=== PATIENT | female | born 1935 | race Caucasian/White ===

== ENCOUNTER 2018-01-07 09:21 | Emergency (ER) | payer OTHER, MEDICARE ==
[~2018-01-07 09:21] MED LIST: GOLYTELY SOLU4000 ML PO
--- NOTE | 2018-01-07 09:34 | ED GENERAL ADULT ---
History of Present Illness General Chief Complaint: Neuro Symptoms/ Deficit Stated Complaint: DIZZY/LFT ARM NUMBNESS Source: patient Exam Limitations: no limitations Vital Signs & Intake/Output Vital Signs & Intake/Output Vital Signs Date Time Temp Pulse Resp B/P B/P Pulse O2 O2 Flow FiO2 Mean Ox Delivery Rate 01/07 1311 98.0 71 18 161/75 100 Room Air 01/07 1125 98.1 72 16 169/89 98 Room Air Room Air 01/07 1002 96 Room Air 01/07 0930 97.2 67 22 167/95 95 Allergies Coded Allergies: No Known Allergies (09/22/17) Reconcile Medications Amlodipine Besylate 2.5 MG TABLET 2.5 MG PO DAILY HTN (Reported) Aspirin (Aspirin*) 81 MG TAB.CHEW 81 MG PO DAILY CARDIAC (Reported) Atorvastatin Calcium 10 MG TABLET 10 MG PO DAILY HTN (Reported) Cholecalciferol (Vitamin D3) (Vitamin D3) 1,000 UNIT CAPSULE 1 CAP PO DAILY SUPPLEMENT (Reported) Donepezil HCl 5 MG TABLET 5 MG PO DAILY MEMORY LOSS (Reported) Ferrous Sulfate 325 MG (65 MG IRON) TABLET 1 TAB PO DAILY IRON, VITAMIN ( Reported) Lorazepam 0.5 MG TABLET 0.5 MG PO DAILY NEEDED ANXIETY (Reported) Multivitamin (Multivitamins) 1 EACH CAPSULE 1 CAP PO DAILY SUPPLEMENT ( Reported) Ondansetron (Zofran Odt) 4 MG TAB.RAPDIS 4 MG SL AD NAUSEA (Reported) Triage Note: PER PT NOT "RIGHT" X 3 WEEKS BUT INTERMITTTANT PAIN THIS AM ABOUT 1 HR NURSING PROGRAM CHAIR PT REPORTS PAIN TO L ARM/ LEG MUCH WORSE THAN PREVIOUS SPEECH CLEAR AND ALERT BUT UNABLE TO GET ACCURATE COURSE OF EVENTS Triage Nurses Notes Reviewed? yes Onset: Abrupt Duration: day(s): Timing: recent history HPI: 01/07/18 82-year-old female presented to the emergency department for intermittent difficulty finding words. She says this is been going on for over a year. Now she presents today with a sudden onset of left upper extremity weakness. She says she also has weakness to the left lower extremity. She denies slurred speech or difficulty swallowing. She denies any significant past medical history. On physical exam she is awake alert oriented 3. I do not appreciate any facial droop, upper or lower extremity weakness on my exam. She does have difficulty and is unable to say you can't teach an old tricks. Past History Travel History Traveled to [place] past 21 day No Medical History Any Pertinent Medical History? 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 No Review of Systems Review of Systems Constitutional: Denies: fever. EENTM: Denies: visual changes. Respiratory: Denies: short of breath. Cardiovascular: Denies: chest pain. GI: Denies: abdominal pain. Genitourinary: Reports: no symptoms. Musculoskeletal: Reports: no symptoms. Skin: Reports: no symptoms. Neurological/Psychological: Reports: see HPI. Hematologic/Endocrine: Reports: no symptoms. Immunologic/Allergic: Reports: no symptoms. Physical Exam Physical Exam General Appearance: well developed/nourished, alert, awake, anxious, mild distress Head: atraumatic, normal appearance Eyes: Bilateral: normal appearance, PERRL, EOMI. Ears, Nose, Throat: normal pharynx, normal ENT inspection Neck: normal inspection, supple, full range of motion Respiratory: normal breath sounds, chest non-tender, no respiratory distress Cardiovascular: regular rate/rhythm Peripheral Pulses: 4+ radial (R), 4+ radial (L) Gastrointestinal: soft, non-tender Back: decreased range of motion Extremities: no edema Neurologic/Psych: no motor/sensory deficits, awake, alert, oriented x 3 (SHORT- TERM MEMORY DEFICIT) Skin: intact, normal color, warm/dry Core Measures ACS in differential dx? No CVA/TIA Diagnosis: No Sepsis Present: No Sepsis Focused Exam Completed? No Progress Differential Diagnoses I considered the following diagnoses in my evaluation of the patient: [CVA, TIA, organic brain syndrome] I considered the diagnosis of acute CVA. The patient has been having issues with difficulty with short-term memory and speech deficit for over a year according to the . He says there is no acute change. Plan of Care: Orders Procedure Date/time Status TROPONIN LEVEL 01/08 948 Complete COMPREHENSIVE METABOLIC PANEL 01/08 948 Complete CBC WITHOUT DIFFERENTIAL 01/08 948 Complete EKG 01/08 948 Active Laboratory Tests 01/07/18 1015: Anion Gap 11, Estimated GFR > 60, BUN/Creatinine Ratio 25.0, Glucose 90, Calcium 10.0, Total Bilirubin 0.9, AST 31, ALT 43, Alkaline Phosphatase 87, Troponin I < 0.01, Total Protein 7.0, Albumin 4.7, Globulin 2.3, Albumin/Globulin Ratio 2.0, CBC w Diff NO MAN DIFF REQ, RBC 4.81, MCV 88.1, MCH 29.8, MCHC 33.8, RDW 13.3, MPV 7.1 L, Gran % 59.8, Lymphocytes % 31.8, Monocytes % 6.6, Eosinophils % 1.4, Basophils % 0.4, Absolute Granulocytes 3.6, Absolute Lymphocytes 1.9, Absolute Monocytes 0.4, Absolute Eosinophils 0.1, Absolute Basophils 0 Initial ED EKG: pending Departure Departure Disposition: STILL A PATIENT Condition: Stable Clinical Impression Primary Impression: Weakness Secondary Impressions: Memory loss Referrals: Ileana SHERIDAN,Elizabeth Murray (PCP/Family) Departure Forms: Customer Survey General Discharge Information Comments 01/07/18 The patient was seen and evaluated by the neurologist in the Emergency Department. We are in agreement with the plan that her symptoms are likely related to her underlying neurodegenerative process. Assuming her labs and CT are unremarkable patient will be discharged. EKG NSRPATIENT: LM MULLER PRESENT AGE: 82 PATIENT ACCOUNT NO: [id number] : 37 LOCATION: [facility] ORDERING PHYSICIAN: Lorenzo Rivera DO SERVICE DATE: 01/07/18 EXAM TYPE: CAT - CT HEAD ANGIOGRAM; CT NECK ANGIOGRAM EXAMINATION: CT ANGIOGRAM NECK WITH CONTRAST CT ANGIOGRAM BRAIN WITH CONTRAST CLINICAL INFORMATION: New left-sided weakness. Rule out CVA. COMPARISON: Brain MRI 01/08/2017. TECHNIQUE: Test bolus sequences followed by intravenous administration 93 mL of Optiray 320. Helical imaging was performed in the axial plane from the thoracic inlet to the skull vertex. Delayed postcontrast imaging of the head was also performed. The data was processed at the cardiac cath technologist workstation for generation of MIP sequences. Angled MIPs and volume rendered reformatted images were also generated at an offline 3D workstation. Stenoses are assessed in accordance with NASCET criteria unless otherwise indicated. DLP: 1609 mGy-cm FINDINGS: Head CT: There is no intracranial hemorrhage, large acute infarction, or mass lesion. The ventricles are normal in size and configuration without evidence of hydrocephalus. There is left frontal sinus drainage pathway mucosal thickening. The left maxillary sinus is partly atelectatic. Is mucosal thickening in the left sphenoid. The mastoids and middle ear cavities are clear. The extracranial soft tissues are unremarkable. 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 There is no significant stenosis of the great vessel origins. The bilateral common carotid arteries appear normal. The bilateral internal carotid arteries appear normal without significant stenosis. The vertebral artery origins and cervical segments appear normal without significant stenosis. Head CTA: No intracranial aneurysm is seen. There are atheromatous changes involving the bilateral carotid siphons. The anterior cerebral artery, anterior communicating artery, and middle cerebral arteries appear normal. The intradural vertebral arteries and basilar artery appear normal. The posterior cerebral arteries appear normal. The posterior communicating arteries are not well seen. Non-vascular findings: There is biapical pleural-parenchymal thickening. There are multilevel degenerative changes in the cervical spine including anterolisthesis of C2 on C3 and C3 on C4 with retrolisthesis of C4 on C5. There is severe disc height loss at C4-C5 and C5-C6. No mass or fluid collection is identified within the neck. IMPRESSION: CT head: No intracranial hemorrhage or large acute infarction. CTA neck: No hemodynamically significant stenosis in the major arteries of the neck. CTA head: No large vessel occlusion or significant stenosis within the intracranial circulation. DICTATED BY: Keron Cheng MD DATE/TIME DICTATED:01/07/181248 BOOKMAKER'S CLERK:MATILDA DATE/TIME TRANSCRIBED:01/07/181248 CONFIDENTIAL, DO NOT COPY WITHOUT APPROPRIATE AUTHORIZATION. <Electronically signed in Other Vendor System> SIGNED BY: Keron Cheng MD 01/07/18 9207 Critical Care Note Critical Care Note Critical Care Time: 30-74 min
[2018-01-07] MEDS ORDERED: LORAZEPAM0.5 M1 PO (09:51)
[2018-01-07] MEDS ORDERED: AMLODIPINE BES2.5 M1 PO (09:51)
[2018-01-07] MEDS ORDERED: ZOFRAN ODT4 M1 SL (09:51)
[2018-01-07] MEDS ORDERED: ATORVASTATIN CA10 M1 PO (09:52)
[2018-01-07] MEDS ORDERED: DONEPEZIL HCL5 MG PO (09:53)
[2018-01-07] MEDS ORDERED: ASPIRIN81 M4 PO (09:53)
[2018-01-07] MEDS ORDERED: MULTIVITAMINS1 EAC8 PO (09:54)
[2018-01-07] MEDS ORDERED: FERROUS SULFAT325 M3 PO (09:54)
[2018-01-07] MEDS ORDERED: VITAMIN D31000 UNI1 PO (09:54)
[2018-01-07 10:24] LABS: ABSOLUTE BASOPHIL COUNT 0 /CUMM (0.0-0.2); ABSOLUTE EOSINOPHIL COUNT 0.1 /CUMM (0.0-0.7); ABSOLUTE GRANULOCYTE CT 3.6 /CUMM (1.4-6.5); ABSOLUTE LYMPH COUNT 1.9 /CUMM (1.2-3.4); ABSOLUTE MONOCYTE COUNT 0.4 /CUMM (0.10-0.60); BASOPHIL % 0.4 % (0.0-2.0); EOSINOPHIL % 1.4 % (0-5); GRANULOCYTE % 59.8 % (42.2-75.2); HEMATOCRIT 42.3 % (37-47); MEAN CORPUSCULAR HGB 29.8 PG (27.0-31.0); MEAN CORPUSCULAR HGB CONC 33.8 G/DL (33.0-37.0); MEAN CORPUSCULAR VOLUME 88.1 FL (81.0-99.0); MEAN PLATELET VOLUME 7.1 FL (7.4-10.4); PLATELET COUNT 261 /CUMM (130-400); RBC DISTRIBUTION WIDTH 13.3 % (11.5-14.5); RED BLOOD CELL CT 4.81 /CUMM (4.20-5.40)
--- NOTE | 2018-01-07 11:13 | Cons- Neurology ---
General Information and HPI Consulting Request Date of Consult: 01/07/18 Requested By: Miguel Reason for Consult: Left side numbness/weakness Source of Information: patient, family Exam Limitations: not alert/orientated, confusion, poor historian History of Present Illness: This is an 82-year-old woman who over the last year has had multiple admissions to emergency rooms for an odd complaint of left-sided arm and leg dysfunction. A she comes back for that reason. She cannot define her problem well. He says that she has pain in but this is very low on the pain scale. She claims that she may have numbness or weakness but there is no evidence for it on exam. She feels that the left arm is not right. She has had a number of admissions for this. MRI brain and cervical spine did not reveal much as far as upper more neuron pathology. However over the last year she has also developed gradual insidious forgetfulness, has been disoriented, and has become very nervous and anxious leading to presentations with heightened blood pressure. This setting she was recently started on Aricept but did not tolerate it well. Rarely she is disoriented to the date and does not know the president's name. Allergies/Medications Allergies: Coded Allergies: No Known Allergies (09/22/17) Home Med List: Amlodipine Besylate 2.5 MG TABLET 2.5 MG PO DAILY HTN (Reported) Aspirin (Aspirin*) 81 MG TAB.CHEW 81 MG PO DAILY CARDIAC (Reported) Atorvastatin Calcium 10 MG TABLET 10 MG PO DAILY HTN (Reported) Cholecalciferol (Vitamin D3) (Vitamin D3) 1,000 UNIT CAPSULE 1 CAP PO DAILY SUPPLEMENT (Reported) Donepezil HCl 5 MG TABLET 5 MG PO DAILY MEMORY LOSS (Reported) Ferrous Sulfate 325 MG (65 MG IRON) TABLET 1 TAB PO DAILY IRON, VITAMIN ( Reported) Lorazepam 0.5 MG TABLET 0.5 MG PO DAILY NEEDED ANXIETY (Reported) Multivitamin (Multivitamins) 1 EACH CAPSULE 1 CAP PO DAILY SUPPLEMENT ( Reported) Ondansetron (Zofran Odt) 4 MG TAB.RAPDIS 4 MG SL AD NAUSEA (Reported) Review of Systems Review of Systems: As per HPI otherwise negative. 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 Pleasant and cooperative. MSE: Alert and oriented to place but only partially to time. He is not no full date and cannot tell me who the president is. Poor attention and concentration. Poor short-term memory and fund of knowledge reflected through our conversation. Language is fluent with good comprehension and repetition. Has trouble naming. Cardiovascular: S1 and S2 are normal, regular rate and rhythm, and normal pedal pulses. Vision: Fundoscopic exam does not reveal any abnormalties. Visual mckeon are intact. Neurological: Extra ocular movements intact, RADHA, face is symmetric, tongue midline, uvula raises equally in the midline, V1-V3 sensation to touch is intact and equal bilaterallty, sternocleidomastoid and trapezius are strong on both sides, muscles of mastication are strong. No dysarthria noted. Motor exam reveals no abnormality of strength. Power is 5-5 throughout the distribution distally and proximally. Sensory exam did not reveal any deficits to touch, temperature, vibration and proprioception. Reflexes are symmetric bilaterally. Cerebellar exam does not reveal any dysmetria. Rapid alternating movements are intact bilaterally. Gait is steady with normal base. Normal graphesthesia and stereognosis. Mold double simultaneous stimulation. Last 48 Hours of Lab Results: Laboratory Tests 01/07 1015 Chemistry Sodium (137 - 145 mmol/L) 143 Potassium (3.5 - 5.1 mmol/L) 4.3 Chloride (98 - 107 mmol/L) 106 Carbon Dioxide (22 - 30 mmol/L) 27 Anion Gap (5 - 16) 11 BUN (7 - 17 mg/dL) 20 H Creatinine (0.5 - 1.0 mg/dL) 0.8 Estimated GFR (>60 ml/min) > 60 BUN/Creatinine Ratio (7 - 25 %) 25.0 Glucose (65 - 99 mg/dL) 90 Calcium (8.4 - 10.2 mg/dL) 10.0 Total Bilirubin (0.2 - 1.3 mg/dL) 0.9 AST (14 - 36 U/L) 31 ALT (9 - 52 U/L) 43 Alkaline Phosphatase (<127 U/L) 87 Troponin I (< 0.11 ng/ml) < 0.01 Total Protein (6.3 - 8.2 g/dL) 7.0 Albumin (3.5 - 5.0 g/dL) 4.7 Globulin (1.9 - 4.2 gm/dL) 2.3 Albumin/Globulin Ratio (1.1 - 2.2 %) 2.0 Hematology CBC w Diff NO MAN DIFF REQ WBC (4.8 - 10.8 /CUMM) 6.0 RBC (4.20 - 5.40 /CUMM) 4.81 Hgb (12.0 - 16.0 G/DL) 14.3 Hct (37 - 47 %) 42.3 MCV (81.0 - 99.0 FL) 88.1 MCH (27.0 - 31.0 PG) 29.8 MCHC (33.0 - 37.0 G/DL) 33.8 RDW (11.5 - 14.5 %) 13.3 Plt Count (130 - 400 /CUMM) 261 MPV (7.4 - 10.4 FL) 7.1 L Gran % (42.2 - 75.2 %) 59.8 Lymphocytes % (20.5 - 51.1 %) 31.8 Monocytes % (1.7 - 9.3 %) 6.6 Eosinophils % (0 - 5 %) 1.4 Basophils % (0.0 - 2.0 %) 0.4 Absolute Granulocytes (1.4 - 6.5 /CUMM) 3.6 Absolute Lymphocytes (1.2 - 3.4 /CUMM) 1.9 Absolute Monocytes (0.10 - 0.60 /CUMM) 0.4 Absolute Eosinophils (0.0 - 0.7 /CUMM) 0.1 Absolute Basophils (0.0 - 0.2 /CUMM) 0 Imaging/Other Studies: MRI brain and cervical spine>> IMPRESSION: 1. Nonspecific white matter changes in the supratentorial white matter would be atypical for intracranial demyelinating disease and are more consistent with mild to moderate chronic small vessel ischemia. 2. No imaging evidence of demyelinating disease in the cervical spine. 3. Motion degraded assessment of the cervical spine reveals moderate multilevel cervical spondylosis. There is slight anterolisthesis of C4 on C5 and slight retrolisthesis of C5 on C6. Vertebral bodies are normal in height. Degenerative endplate marrow signal and associated contour changes are visible at C5-C6 and C6-C7, levels where there is also moderate loss of normal intervertebral disc volume. The craniocervical junction is normal in appearance and the cervical spinal cord is normal in contour and signal intensity. 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 There is no evidence of any stroke, TIA, or myelopathy in the cervical spine. Recommendations: He did be discharged home. Anxiety and long-term effects of medications should be afforded as an outpatient. Recommend trying Namenda. Consult Acknowledgment - Thank you for your consult request.
--- NOTE | 2018-01-07 13:07 | CT SCAN REPORT ---
EXAMINATION: CT ANGIOGRAM NECK WITH CONTRAST CT ANGIOGRAM BRAIN WITH CONTRAST CLINICAL INFORMATION: New left-sided weakness. Rule out CVA. COMPARISON: Brain MRI 01/08/2017. TECHNIQUE: Test bolus sequences followed by intravenous administration 93 mL of Optiray 320. Helical imaging was performed in the axial plane from the thoracic inlet to the skull vertex. Delayed postcontrast imaging of the head was also performed. The data was processed at the special procedure technologist workstation for generation of MIP sequences. Angled MIPs and volume rendered reformatted images were also generated at an offline 3D workstation. Stenoses are assessed in accordance with NASCET criteria unless otherwise indicated. DLP: 1609 mGy-cm FINDINGS: Head CT: There is no intracranial hemorrhage, large acute infarction, or mass lesion. The ventricles are normal in size and configuration without evidence of hydrocephalus. There is left frontal sinus drainage pathway mucosal thickening. The left maxillary sinus is partly atelectatic. Is mucosal thickening in the left sphenoid. The mastoids and middle ear cavities are clear. The extracranial soft tissues are unremarkable. 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 There is no significant stenosis of the great vessel origins. The bilateral common carotid arteries appear normal. The bilateral internal carotid arteries appear normal without significant stenosis. The vertebral artery origins and cervical segments appear normal without significant stenosis. Head CTA: No intracranial aneurysm is seen. There are atheromatous changes involving the bilateral carotid siphons. The anterior cerebral artery, anterior communicating artery, and middle cerebral arteries appear normal. The intradural vertebral arteries and basilar artery appear normal. The posterior cerebral arteries appear normal. The posterior communicating arteries are not well seen. Non-vascular findings: There is biapical pleural-parenchymal thickening. There are multilevel degenerative changes in the cervical spine including anterolisthesis of C2 on C3 and C3 on C4 with retrolisthesis of C4 on C5. There is severe disc height loss at C4-C5 and C5-C6. No mass or fluid collection is identified within the neck. IMPRESSION: CT head: No intracranial hemorrhage or large acute infarction. CTA neck: No hemodynamically significant stenosis in the major arteries of the neck. CTA head: No large vessel occlusion or significant stenosis within the intracranial circulation.
[2018-01-07 13:11] VITALS: BP 161/75
== END 2018-01-07 13:50 ==
LOC: ERH 09:21
PROVIDERS: Emergency Medicine
DX: R53.1 Weakness (principal); R41.3 Other amnesia
CPT/HCPCS: 93005; 93010

== ENCOUNTER 2018-02-22 15:31 | Inpatient (IN) | payer OTHER, MEDICARE ==
[~2018-02-22] VITALS: Ht 160 cm; Wt 62.1 kg
[~2018-02-22 15:31] MED LIST changes: +AMLODIPINE BES2.5 M1 PO; +ASPIRIN81 M4 PO; +ATORVASTATIN CA10 M1 PO; +DONEPEZIL HCL5 MG PO; +FERROUS SULFAT325 M3 PO; +LORAZEPAM0.5 M1 PO; +MULTIVITAMINS1 EAC8 PO; +VITAMIN D31000 UNI1 PO; +ZOFRAN ODT4 M1 SL
--- NOTE | 2018-02-22 15:45 | ED GI/GU/ABDOMINAL COMPLAINT ---
History of Present Illness General Chief Complaint: General Adult Stated Complaint: "STOMACH BLOCKAGE",BLACK STOOL Source: patient Exam Limitations: no limitations Vital Signs & Intake/Output Vital Signs & Intake/Output Vital Signs Date Time Temp Pulse Resp B/P B/P Pulse O2 O2 Flow FiO2 Mean Ox Delivery Rate 02/22 1934 97.4 56 18 164/80 98 02/22 1714 98.4 74 18 164/86 97 Room Air Room Air 02/22 1535 97.0 71 20 182/98 98 Room Air Allergies Coded Allergies: No Known Allergies (02/22/18) Reconcile Medications Amlodipine Besylate 2.5 MG TABLET 2.5 MG PO DAILY HTN (Reported) Aspirin (Aspirin*) 81 MG TAB.CHEW 81 MG PO DAILY CARDIAC (Reported) Atorvastatin Calcium 10 MG TABLET 10 MG PO DAILY HTN (Reported) Cholecalciferol (Vitamin D3) (Vitamin D3) 1,000 UNIT CAPSULE 1 CAP PO DAILY SUPPLEMENT (Reported) Donepezil HCl 5 MG TABLET 5 MG PO DAILY MEMORY LOSS (Reported) Ferrous Sulfate 325 MG (65 MG IRON) TABLET 1 TAB PO DAILY IRON, VITAMIN ( Reported) Lorazepam 0.5 MG TABLET 0.5 MG PO DAILY NEEDED ANXIETY (Reported) Multivitamin (Multivitamins) 1 EACH CAPSULE 1 CAP PO DAILY SUPPLEMENT ( Reported) Ondansetron (Zofran Odt) 4 MG TAB.RAPDIS 4 MG SL AD NAUSEA (Reported) Triage Note: TRIAGE: PT TO ER WITH C/C DIFFUSE ABD X MONTHS, INTERMITTENT BUT NOW CONSTANT FOR COUPLE WEEKS. +INTERMITTENT NAUSEA, -VOMITING, +DIARRHEA. REPORTS DIARRHEA X 3-4 TODAY. [facility] "MAYBE COUPLE WEEKS AGO". -URINARY S/S. Triage Nurses Notes Reviewed? yes ? N Is pt currently ? No Duration: getting worse, intermittent Timing: recent history Quality/Severity: cramping, moderate Severity Numbers: 4 Location: generalized abdomen Radiation: no radiation HPI: Patient is a 82-year-old female with a past medical history of mild dementia currently taking , hypertension, hyperlipidemia, anxiety, and currently on 81 mg of prophylaxis aspirin who presents emergency room with concerns of a 5 month history of intermittent abdominal discomfort it is noted through old records and September patient was evaluated here at [place] emergency room for similar complaints as today in which she was safely discharged and strongly advised to follow-up to obtain a colonoscopy however she has not, last colonoscopy was 2003 old records indicate that CT scan shows concerns of a underlying lesion of the colon patient has been complaining of a one-week history of black tarry stools and intermittent abdominal discomfort and pain patient has had decreased by mouth intake generalized weakness and fatigue and weight loss Patient is able tolerate by mouth patient did take a few days ago MiraLAX due to having constipation concerns Denies any chest pain shortness breath arm pain jaw pain dysuria hematuria. Patient has followed up with primary care doctor in the past week and has a follow-up and establishment with oncology navigator Dr. Mcneill next week Patient does admit to chronically taking multivitamin with iron however no Pepto -Bismol (Mor Martinez) Past History Travel History Traveled to [place] past 21 day No Medical History Any Pertinent Medical History? see below for history Neurological: memory loss EENT: NONE Cardiovascular: NONE (memory loss), hypertension, hyperlipidemia Respiratory: NONE Gastrointestinal: YWISTED INTESTINE Hepatic: NONE Renal: NONE Musculoskeletal: NONE Psychiatric: NONE Endocrine: NONE Blood Disorders: NONE Cancer(s): NONE DIRECTOR DRUG SAFETY/Reproductive: NONE Surgical History Surgical History: non-contributory Psychosocial History What is your primary language Chinese Tobacco Use: Never used ETOH Use: occasional use Illicit Drug Use: denies illicit drug use Family History Hx Contributory? No (Mor Martinez) Review of Systems Review of Systems Constitutional: Reports: see HPI, malaise, weakness. EENTM: Reports: no symptoms. Respiratory: Reports: no symptoms. Cardiovascular: Reports: no symptoms. GI: Reports: see HPI, abdominal pain, melena, changes in stool. Genitourinary: Reports: no symptoms. Musculoskeletal: Reports: no symptoms. Skin: Reports: no symptoms. Neurological/Psychological: Reports: no symptoms. Hematologic/Endocrine: Reports: no symptoms. Immunologic/Allergic: Reports: no symptoms. All Other Systems: Reviewed and Negative (Mor Martinez) Physical Exam Physical Exam General Appearance: no apparent distress, alert, comfortable Head: atraumatic Eyes: Bilateral: normal appearance. Ears, Nose, Throat, Mouth: moist mucous membrane Neck: normal inspection Respiratory: no respiratory distress Cardiovascular: regular rate/rhythm Gastrointestinal: normal bowel sounds, tenderness Rectal: heme positive stool, black stool Extremities: normal range of motion Neurologic/Psych: no motor/sensory deficits, awake, alert Skin: intact, normal color Core Measures ACS in differential dx? No Sepsis Present: No Sepsis Focused Exam Completed? No (Claudia BECKETT,Mor) Progress Differential Diagnosis: AAA, AMI, appendicitis, biliary colic, bowel obstruction , colon cancer, cholecystitis, diverticulitis, esophageal varices, gastritis, hepatitis, hernia, hemorrhoids, ischemic bowel, inflamm bowel dis, kidney stone, Irene-Kassidy tear, ovarian cyst, ovarian torsion, pancreatitis, PID/cervicitis, peptic ulcer, PUD/GERD, perforated viscous, SBO, UTI/pyelo Plan of Care: Orders Procedure Date/time Status Nothing by Mouth 02/23 B Active Heart Healthy Diet 02/22 D Complete Patient Data 02/23 2120 Active ED Holding Orders 02/22 2100 Active Admit to inpatient 02/22 2100 Active Vital Signs 02/22 2100 Active Code Status 02/22 2100 Active Intake & Output 02/22 1649 Active Saline Lock 02/22 1537 Active TROPONIN LEVEL 02/22 1537 Complete PROTHROMBIN TIME 02/22 1537 Complete LIPASE 02/22 1537 Complete COMPREHENSIVE METABOLIC PANEL 02/22 1537 Complete CBC WITHOUT DIFFERENTIAL 02/22 1537 Complete EKG 02/22 1537 Active Current Medications Sig/Lily Start time Last Medication Dose Stop Time Status Admin Amlodipine Besylate 2.5 MG DAILY 02/23 09 UNVr (Norvasc) Atorvastatin Calcium 10 MG DAILY 02/23 900 UNVr (Lipitor) Donepezil HCl 5 MG DAILY 02/23 900 UNVr (Aricept) Omeprazole 40 MG DAILY AC 02/23 07 UNVr (Prilosec) Lorazepam 0.5 MG DAILY NEEDED 02/22 2200 UNVr (Ativan) 03/01 2159 Laboratory Tests 02/22/18 1640: Anion Gap 10, Estimated GFR > 60, BUN/Creatinine Ratio 15.6, Glucose 87, Calcium 9.8, Total Bilirubin 0.9, AST 27, ALT 35, Alkaline Phosphatase 77, Troponin I < 0.01, Total Protein 6.8, Albumin 4.2, Globulin 2.6, Albumin/Globulin Ratio 1.6, Lipase 278, PT 12.0, INR 1.10, CBC w Diff NO MAN DIFF REQ, RBC 5.00, MCV 88.8, MCH 29.5, MCHC 33.2, RDW 13.4, MPV 7.4, Gran % 58.4, Lymphocytes % 32.0, Monocytes % 7.6, Eosinophils % 1.4, Basophils % 0.6, Absolute Granulocytes 3.2, Absolute Lymphocytes 1.8, Absolute Monocytes 0.4, Absolute Eosinophils 0.1, Absolute Basophils 0 Patient upon initial presentation is resting comfortable at bedside has mild generalized abdominal pain 1722 patient upon reexamination currently is tolerating by mouth contrast I updated patient blood work to her and her . CT scan was unremarkable discussed results with patient and family members GI was called for noted melena Gastroenterology DR CRAIG ,is aware of patient's presenting complaints and admission Patient will be admitted for concerns of GI bleed Patient agrees with disposition and plan Diagnostic Imaging: Viewed by Me: CT Scan. Radiology Impression: no acute abnormality Initial ED EKG: normal p-waves, normal QRS complex (70 BPM,NSR) Comments: PATIENT: LM MULLER PRESENT AGE: 82 PATIENT ACCOUNT NO: [id number] : 37 LOCATION: ER ORDERING PHYSICIAN: Mor BECKETT SERVICE DATE: 02/22/18 EXAM TYPE: CAT - CT ABD & PELVIS W ORAL & IV CO EXAMINATION: CT ABDOMEN AND PELVIS WITH CONTRAST CLINICAL INFORMATION: Nausea, vomiting with diffuse abdominal pain. Black stool. COMPARISON: None TECHNIQUE: Multidetector volumetric imaging was performed of the abdomen and pelvis following IV administration of 95 mL of obtained 220 intravenous contrast. Sagittal and coronal reformatted images were obtained on the technologist's workstation. DLP: 307 mGy-cm FINDINGS: LUNG BASES: The visualized lung bases are unremarkable. LIVER, GALLBLADDER, AND BILIARY TREE: The liver is normal in size, shape, and attenuation. No focal hepatic lesion or biliary ductal dilatation is present. The gallbladder is unremarkable with no evidence of radiopaque gallstones, gallbladder wall thickening, or obvious pericholecystic inflammatory changes. PANCREAS: Unremarkable. SPLEEN: Unremarkable. ADRENAL GLANDS: Unremarkable. KIDNEYS AND URETERS: The kidneys are normal in size, shape, and attenuation. No hydronephrosis, hydroureter, or calculi seen. No perinephric stranding. There are bilateral parapelvic and small cortical cysts. BLADDER: Unremarkable. GASTROINTESTINAL TRACT: Scattered contrast and diverticuli seen throughout the entire colon without distention. There is no evidence of diverticulitis. The small bowel loops are normal caliber. There is no free air or free fluid. ABDOMINAL WALL: No significant hernia is appreciated. LYMPH NODES: Normal. VASCULAR: Unremarkable. PELVIC VISCERA: The uterus is anteverted. No free fluid of free air. The pelvis is limited in evaluation secondary to beam hardening artifact from the right hip prosthesis. BONES: There is no lytic or sclerotic process. There are degenerative disc changes with vacuum disc phenomena T12-L1 through L3-4 disc level. There is grade 1 anterolisthesis L4 over L5. IMPRESSION: Diffuse colonic diverticulosis without diverticulitis, obstruction, free air or free fluid. Bilateral parapelvic and cortical renal cysts. No radiopaque renal calculi or hydronephrosis. Degenerative disc changes as described above. Grade 1 anterolisthesis L4 over L5. DICTATED BY: Ruben Garibay MD DATE/TIME DICTATED:02/22/181921 BATTERY TESTER FIELD:MATILDA DATE/TIME TRANSCRIBED:02/22/181921 (Mor Martinez) Departure Departure Disposition: STILL A PATIENT Condition: Stable Clinical Impression Primary Impression: Melena Secondary Impressions: Abdominal pain Referrals: Ileana SHERIDAN,Elizabeth Murray (PCP/Family) Additional Instructions: As discussed begin drinking plenty of water and ate a healthy balanced diet to improve her symptoms, follow-up with your establish gastroenterology appointment next week as you have an appointment. If symptoms worsen or if you develop new concerning symptom return to emergency room Discontinue the aspirin as this may improve if your bowel color Departure Forms: Customer Survey General Discharge Information Admission Note Spoke With: Antonella Busby MD Documentation of Exam: Documentation of any treatments & extenuating circumstances including Concerns Regarding Discharge (functional status, medication knowledge or non-compliance, living conditions, etc.) that warrant an admission rather than observation: [ Patient requires repeat labs close monitoring for concerns of GI bleed proton pump inhibitor gastroenterology consultation for concerns of GI bleed] (Mor Martinez) PA/[employer] Co-Sign Statement Statement: ED Attending supervision documentation- [X] I saw and evaluated the patient. I have also reviewed all the pertinent lab results and diagnostic results. I agree with the findings and the plan of care as documented in the PA's/[employer]'s documentation. [X] I have reviewed the ED Record and agree with the PA's/[employer]'s documentation. [] Additions or exceptions (if any) to the PAs/[employer]'s note and plan are summarized below: [Patient to be admitted for an upper GI bleed with melanotic stool. GI consultation, IV PPI, IV fluids] (Filemon SHERIDAN,Jose Johnson)
[2018-02-22 16:50] LABS: ABSOLUTE BASOPHIL COUNT 0 /CUMM (0.0-0.2); ABSOLUTE EOSINOPHIL COUNT 0.1 /CUMM (0.0-0.7); ABSOLUTE GRANULOCYTE CT 3.2 /CUMM (1.4-6.5); ABSOLUTE LYMPH COUNT 1.8 /CUMM (1.2-3.4); ABSOLUTE MONOCYTE COUNT 0.4 /CUMM (0.10-0.60); BASOPHIL % 0.6 % (0.0-2.0); EOSINOPHIL % 1.4 % (0-5); GRANULOCYTE % 58.4 % (42.2-75.2); HEMATOCRIT 44.4 % (37-47); MEAN CORPUSCULAR HGB 29.5 PG (27.0-31.0); MEAN CORPUSCULAR HGB CONC 33.2 G/DL (33.0-37.0); MEAN CORPUSCULAR VOLUME 88.8 FL (81.0-99.0); MEAN PLATELET VOLUME 7.4 FL (7.4-10.4); PLATELET COUNT 277 /CUMM (130-400); RBC DISTRIBUTION WIDTH 13.4 % (11.5-14.5); WHITE BLOOD CELL COUNT 5.6 /CUMM (4.8-10.8)
--- NOTE | 2018-02-22 19:34 | CT SCAN REPORT ---
EXAMINATION: CT ABDOMEN AND PELVIS WITH CONTRAST CLINICAL INFORMATION: Nausea, vomiting with diffuse abdominal pain. Black stool. COMPARISON: None TECHNIQUE: Multidetector volumetric imaging was performed of the abdomen and pelvis following IV administration of 95 mL of obtained 220 intravenous contrast. Sagittal and coronal reformatted images were obtained on the technologist's workstation. DLP: 307 mGy-cm FINDINGS: LUNG BASES: The visualized lung bases are unremarkable. LIVER, GALLBLADDER, AND BILIARY TREE: The liver is normal in size, shape, and attenuation. No focal hepatic lesion or biliary ductal dilatation is present. The gallbladder is unremarkable with no evidence of radiopaque gallstones, gallbladder wall thickening, or obvious pericholecystic inflammatory changes. PANCREAS: Unremarkable. SPLEEN: Unremarkable. ADRENAL GLANDS: Unremarkable. KIDNEYS AND URETERS: The kidneys are normal in size, shape, and attenuation. No hydronephrosis, hydroureter, or calculi seen. No perinephric stranding. There are bilateral parapelvic and small cortical cysts. BLADDER: Unremarkable. GASTROINTESTINAL TRACT: Scattered contrast and diverticuli seen throughout the entire colon without distention. There is no evidence of diverticulitis. The small bowel loops are normal caliber. There is no free air or free fluid. ABDOMINAL WALL: No significant hernia is appreciated. LYMPH NODES: Normal. VASCULAR: Unremarkable. PELVIC VISCERA: The uterus is anteverted. No free fluid of free air. The pelvis is limited in evaluation secondary to beam hardening artifact from the right hip prosthesis. BONES: There is no lytic or sclerotic process. There are degenerative disc changes with vacuum disc phenomena T12-L1 through L3-4 disc level. There is grade 1 anterolisthesis L4 over L5. IMPRESSION: Diffuse colonic diverticulosis without diverticulitis, obstruction, free air or free fluid. Bilateral parapelvic and cortical renal cysts. No radiopaque renal calculi or hydronephrosis. Degenerative disc changes as described above. Grade 1 anterolisthesis L4 over L5.
--- NOTE | 2018-02-22 21:23 | History & Physical ---
Esha Stephenson MD 02/22/182121: General Information and HPI MD Statement: I have seen and personally examined LM MULLER and documented this H&P. The patient is a 82 year old F who presented with a patient stated chief complaint of lower GI bleeding Source of Information: patient, family Exam Limitations: no limitations History of Present Illness: This is an 82-year-old female with a past medical history significant for hyperlipidemia, hypertension, chronic intestinal upset/diarrhea, dementia that comes to us for 3 days history of black tarry stools in the context of chronic abdominal "issues" including on and off pain and diarrhea. Some of the history is given by the patient's as the patient has some degree of dementia. The patient states that a few days back, she noted that she was having black tarry stools and an increase in the number of soft bowel movements. The patient has been on iron supplementation for some time, but never noticed this issue before. The patient rates her recent abdominal pain at a 5-6 out of 10 and notes that the frequency and intensity have increased. The patient was supposed to see Dr. Mcneill for the first time, on 02/24. She was referred by her PCP last week after she told him of the increasing frequency and intensity of her abdominal pain. The patient states that her pain usually depends on food. She has not noted any new foods in her diet. No travel. No sick contacts. The patient states that the pain usually comes on late in the afternoon. It is mostly accompanied by diarrhea. She states that her pain is relieved with defecation, admits to episodes of tenesmus. The patient was prescribed omeprazole on 01/22 but states that she only took a few doses of it. The patient has a family history of "stomach issues" in her sisters for their whole lives. She denies any accompanying fever, chills, nausea, vomiting, headache, dizziness , chest pain, shortness of breath, dysuria, musculoskeletal pain. She has no history of kidney stones, no history of female genitourinary disease. The patient denies any lactose intolerance or gluten allergy. Of note, the patient was seen by neurologist over 10 years ago for numbness and tingling of extremities. 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 Apparently the severe abdominal pain associated with that disappeared the next day. The patient lives with her , walks unassisted, is independent in her activities of daily living. The patient notes only seasonal and pet related allergies. Allergies/Medications Allergies: Coded Allergies: No Known Allergies (02/22/18) Home Med list Amlodipine Besylate 2.5 MG TABLET 2.5 MG PO DAILY HTN (Reported) Aspirin (Aspirin*) 81 MG TAB.CHEW 81 MG PO DAILY CARDIAC (Reported) Atorvastatin Calcium 10 MG TABLET 10 MG PO DAILY HTN (Reported) Cholecalciferol (Vitamin D3) (Vitamin D3) 1,000 UNIT CAPSULE 1 CAP PO DAILY SUPPLEMENT (Reported) Donepezil HCl 5 MG TABLET 5 MG PO DAILY MEMORY LOSS (Reported) Ferrous Sulfate 325 MG (65 MG IRON) TABLET 1 TAB PO DAILY IRON, VITAMIN ( Reported) Lorazepam 0.5 MG TABLET 0.5 MG PO DAILY NEEDED ANXIETY (Reported) Multivitamin (Multivitamins) 1 EACH CAPSULE 1 CAP PO DAILY SUPPLEMENT ( Reported) Ondansetron (Zofran Odt) 4 MG TAB.RAPDIS 4 MG SL AD NAUSEA (Reported) Compliance With Home Meds: GOOD Past History Travel History Traveled to [place] past 21 day No Medical History Neurological: memory loss EENT: NONE Cardiovascular: NONE (memory loss), hypertension, hyperlipidemia Respiratory: NONE Gastrointestinal: TWISTED INTESTINE Hepatic: NONE Renal: NONE Musculoskeletal: NONE Psychiatric: NONE Endocrine: NONE Blood Disorders: NONE Cancer(s): NONE TALENT ANALYST/Reproductive: NONE Surgical History Surgical History: non-contributory Past Family/Social History Psychosocial History Smoking Status: Never Smoked ETOH Use: occasional use Illicit Drug Use: denies illicit drug use Functional Ability ADLs Independent: dressing, eating, toileting, bathing. Ambulation: independent IADLs Independent: shopping, housework, finances, food prep, telephone, transportation , medication admin. Review of Systems Review of Systems Constitutional: Reports: no symptoms. EENTM: Reports: no symptoms. Cardiovascular: Reports: no symptoms. Respiratory: Reports: no symptoms. GI: Reports: abdominal pain, diarrhea, melena. Genitourinary: Reports: no symptoms. Musculoskeletal: Reports: no symptoms. Skin: Reports: no symptoms. Neurological/Psychological: Reports: no symptoms. Hematologic/Endocrine: Reports: no symptoms. Immunologic/Allergic: Reports: no symptoms. All Other Systems: Reviewed and Negative Exam & Diagnostic Data Last 24 Hrs of Vital Signs/I&O Vital Signs Date Time Temp Pulse Resp B/P B/P Pulse O2 O2 Flow FiO2 Mean Ox Delivery Rate 02/22 2225 97.5 64 18 155/74 98 Room Air Room Air 02/22 1934 97.4 56 18 164/80 98 02/22 1714 98.4 74 18 164/86 97 Room Air Room Air 02/22 1535 97.0 71 20 182/98 98 Room Air Intake & Output 02/23 0800 02/23 0000 02/22 1600 Intake Total 120 Output Total Balance 120 Intake, Oral 120 Patient 136 lb Weight Weight Reported by Patient Measurement Method Physical Exam General Appearance Alert, Oriented X3, Cooperative, No Acute Distress Skin No Rashes, No Breakdown, ppatient does have many freckles, liver spots, moles on her back Skin Temp/Moisture Exam: Warm/Dry Sepsis Skin Exam (color): Normal for Ethnicity HEENT Atraumatic, PERRLA, Mucous Membr. moist/pink Cardiovascular Regular Rate, Normal S1, Normal S2, No Murmurs Lungs Clear to Auscultation, Normal Air Movement Abdomen Normal Bowel Sounds, Soft, No Tenderness, No Hepatospenomegaly, No Masses Neurological Normal Speech Extremities No Clubbing, No Cyanosis, No Edema Vascular Normal Pulses Rectal HEME POSITIVE BLACK STOOLS Last 24 Hrs of Labs/Roland: Laboratory Tests 02/22/18 1640: Anion Gap 10, Estimated GFR > 60, BUN/Creatinine Ratio 15.6, Glucose 87, Calcium 9.8, Total Bilirubin 0.9, AST 27, ALT 35, Alkaline Phosphatase 77, Troponin I < 0.01, Total Protein 6.8, Albumin 4.2, Globulin 2.6, Albumin/Globulin Ratio 1.6, Lipase 278, PT 12.0, INR 1.10, CBC w Diff NO MAN DIFF REQ, RBC 5.00, MCV 88.8, MCH 29.5, MCHC 33.2, RDW 13.4, MPV 7.4, Gran % 58.4, Lymphocytes % 32.0, Monocytes % 7.6, Eosinophils % 1.4, Basophils % 0.6, Absolute Granulocytes 3.2, Absolute Lymphocytes 1.8, Absolute Monocytes 0.4, Absolute Eosinophils 0.1, Absolute Basophils 0 Assessment/Plan Assessment: This is an 82-year-old female with a past medical history significant for hyperlipidemia, hypertension, chronic intestinal upset/diarrhea, dementia that comes to us for 3 days history of black tarry stools in the context of chronic abdominal "issues" including on and off pain and diarrhea. The patient was supposed to see Dr. Mcneill, on awake counselor, for the first time for increased intensity and frequency of her abdominal pain. The patient is on supplemental iron but has never had this issue with black tarry stools. The patient was previously described omeprazole 40 mg daily but admits to only taking a couple doses before stopping. She admits that normally her bowel movements are diarrhea and her pain is relieved on defecation, admits to history of tenesmus. She has never been formally diagnosed with irritable bowel syndrome. The patient has no history of bleeding disorders. In the ED, vitals temperature 97.4, heart rate 71, respiratory rate 20, blood pressure 182/98 which decreased to 164/80, 98% oxygen saturation on room air. EKG showed normal sinus rhythm at a rate of 70, QTC 445. Labs showed WBC 5.6, hemoglobin of 14.8, INR 1.10, otherwise completely normal labs, normal lipase and LFTs. CT abdomen and pelvis showed diffuse colonic diverticulosis without diverticulitis, obstruction, free air or free fluid. In the ED, patient was given Protonix 40 mg IV 1 Assessment -Melena with increased frequency and intensity of abdominal pain with unknown etiology in the setting of chronic abdominal symptoms/family history. Patient has stable and normal hemoglobin. -History of hypertension and hyperlipidemia, dementia Plan -Admit patient to general medical floors for evaluation and treatment of GI bleed. -Follow CBC -Hold any blood thinners including aspirin -GI consult -40 mg IV Protonix daily -Guaiac stools -Start patient on clears and advanced as tolerated. Patient is not nothing by mouth, was discussed with Dr. Low who stated that no colonoscopy would be necessary tomorrow, patient is stable, not anemic. -Continue patient's home medications Patient is DNR/DNI Clear liquid diet DVT prophylaxis with Alps As Ranked By This Provider Problem List: 1. Melena 2. Memory loss Core Measures/Misc (05/19) Acute Coronary Syndrome ACS Diagnosis: No Congestive Heart Failure Congestive Heart Failure Diagnosis No Cerebrovascular Accident CVA/TIA Diagnosis: No VTE (View Protocol) VTE Risk Factors Age>40 No Mechanical VTE Prophylaxis d/t N/A MechProphylax Ordered No VTE Pharm Prophylaxis d/t Bleeding (Active) Sepsis (View protocol) Sepsis Present: No If YES complete Sepsis Event Note If YES complete Sepsis Event Note Lesly Pringle 02/22/18 2200: Exam & Diagnostic Data Last 24 Hrs of Vital Signs/I&O Vital Signs Date Time Temp Pulse Resp B/P B/P Pulse O2 O2 Flow FiO2 Mean Ox Delivery Rate 02/22 2225 97.5 64 18 155/74 98 Room Air Room Air 02/22 1934 97.4 56 18 164/80 98 02/22 1714 98.4 74 18 164/86 97 Room Air Room Air 02/22 1535 97.0 71 20 182/98 98 Room Air Intake & Output 02/23 0800 02/23 0000 02/22 1600 Intake Total 120 Output Total Balance 120 Intake, Oral 120 Patient 61.689 kg Weight Weight Reported by Patient Measurement Method Core Measures/Misc (05/19) Sepsis (View protocol) If YES complete Sepsis Event Note If YES complete Sepsis Event Note Resident Review Statement Other Findings: Patient is 82 years olf female with PMH of HTN, HLD, Dementia on donepazil, came with chief complain of abdominal cramps and dark stools since past couple of days. Patient states that she has always had abdominal complaints such as cramping and intermittent diarrhea however since past couple of days, her abdominal cramping has gotten worse. She reports of 6/10 abdominal pain, nonradiating, improves after bowel movement. Patient denies any nausea or vomiting. She also reports that her sisters have similar complaint of abdominal discomfort, crampy pain, and intermittent diarrhea. Patient has never pursued her care with a on awake counselor, however due to her recent complaints, the primary care physician had referred her to see Dr. Mcneill on Saturday02/24/18. Patient denies any fever or chills. Review of systems negative for any complain. Of note, patient is on iron sulfate tablets, however she reports that her dark stools are new. Labs and vitals as above CT abdomen pelvis with IV/oral contrast Diffuse colonic diverticulosis without diverticulitis, obstruction, free air or free fluid. Bilateral parapelvic and cortical renal cysts. No radiopaque renal calculi or hydronephrosis. Degenerative disc changes as described above. Grade 1 anterolisthesis L4 over L5. Plan Will admit the patient on general medicine floor for closer monitoring. Will repeat CBC in a.m. GI consult in a.m. Will will hold aspirin for now and start patient on clear liquid diet. IV Protonix daily for now. We'll start the patient on her home meds including Tylenol, Protonix, metoprolol , donepezil, atorvastatin, amlodipine, Ativan. Hemoglobin stable at 14.8, Type and screen in a.m. Stool guiac DVT prophylaxis Alps Pain management with Tylenol when necessary Patient is DNR/DNI Antonella Busby 02/23/18 0142: Core Measures/Misc (05/19) Sepsis (View protocol) If YES complete Sepsis Event Note If YES complete Sepsis Event Note Attending MD Review Statement Attending Statement Attending MD Statement: examined this patient, discuss w/resident/PA/PATTERNMAKER METAL BENCH, agreed w/resident/PA/PATTERNMAKER METAL BENCH, discussed with family, reviewed EMR data (avail), reviewed images, amended to note Attending Assessment/Plan: CC: Black colored stool PMH: HTN, HLD, dementia History is mostly obtained from patient's . Patient appears more forgetful and unable to provide details. According to patient has always complained about intermittent abdominal pain, crampy in nature, of course once in few days, results on its own, associated with excessive or different food intake. Recently patient has been complaining of worsening abdominal pain since last few days and noticed diarrhea today approximately 5 times and black colored stool. Patient's brought her to ER because of black colored stool. Even though patient is on iron supplementation she never had black colored stool in the past. Patient was seen in the month of September in ER for abdominal pain at that time she was found to have some swelling on the sigmoid colon and was suggested to follow-up outpatient with gastroenterology. Patient followed up with her PCP who suggested conservative management and she has gastroenterology appointment on Saturday, February 24. Patient has not underwent colonoscopy recently. Last colonoscopy was in 2005. She routinely follows up with tip fixer once in 6 months and she was found to be tachycardic recently and was started on metoprolol. Vitals: Temperature 97.0, pulse 71, RR 20, blood pressure 182/98, saturating 98% on room air. On exam: A O 3, cooperative, no acute distress, neck supple, JVD normal, no lymphadenopathy, mucosa moist, no focal neurological deficit, no dependent edema , no obvious skin rashes or inflammation CVS: S1-S2, RRR. RS: Clear to auscultate bilaterally. Abdomen: Soft, NT, ND, bowel sounds present. Rectal examination done by ER provider shows black colored stool, heme-positive, no fresh red blood. CT abdomen pelvis with oral and IV contrast: Diffuse colonic diverticulosis without diverticulitis, obstruction, free air or free fluid. Bilateral parapelvic and cortical renal cysts. No radiopaque renal calculi or hydronephrosis. Degenerative disc changes as described above. Grade 1 anterolisthesis L4 over L5. Assessment and plan 82-year-old female with above-mentioned past medical history presented in ER for worsening abdominal pain since last few days, diarrhea today 5 episodes and melena. Examination is unremarkable. Her hemoglobin is 14.8 and hematocrit 44.4, creatinine 0.4 and BUN 14. Patient may have had mild upper GI bleed leading to melena. Given her age and comorbidities on awake counselor suggested admission to closely monitor any further blood loss. + Melena + Abdominal pain + History of HTN, HLD, dementia - Admit to general medicine - Continue IV Protonix 40 mg daily - Hold aspirin - Continue all antihypertensives - GI consult - Repeat CBC in a.m. - Advance clears - We'll need to reschedule her outpatient appointment with Dr. Mcneill on Saturday; we discussed with on awake counselor tomorrow. - DVT prophylaxis with Alps only
[2018-02-22 23:00] VITALS: BP 152/70
--- NOTE | 2018-02-23 01:44 | Admission Certification ---
Admission Certification Certification Statement - As attending physician, I certify that at the time of - admission, based on clinical presentation, severity of - symptoms, need for further diagnostic testing and - therapeutic interventions, and risk of adverse outcomes - without in-hospital treatment, in my clinical assessment, - this patient requires an acute hospital stay for a minimum - of two nights or longer. I have also considered psychsocial - factors such as support system, advanced age, financial - issues, cognitive issues, and failed out-patient treatments, - past re-admission history, safety of patient, and lack of - compliance as applicable. Specific rationale supporting this admission is: Candace
[2018-02-23 07:09] VITALS: BP 148/76
--- NOTE | 2018-02-23 08:55 | PN- Housestaff ---
Subjective Follow-up For: Melena Abdominal pain Subjective: seen and examined at bedside Remained stable overnight. No further episodes of melena. able to tolerate diet, denies any issues. Review of Systems Constitutional: Reports: see HPI. Objective Last 24 Hrs of Vital Signs/I&O Vital Signs Date Time Temp Pulse Resp B/P B/P Pulse O2 O2 Flow FiO2 Mean Ox Delivery Rate 02/23 0709 97.7 57 18 148/76 99 02/22 2300 98.8 78 18 152/70 94 Room Air 02/22 2225 97.5 64 18 155/74 98 Room Air Room Air 02/22 1934 97.4 56 18 164/80 98 02/22 1714 98.4 74 18 164/86 97 Room Air Room Air 02/22 1535 97.0 71 20 182/98 98 Room Air Intake & Output 02/23 1600 02/23 0800 02/23 0000 Intake Total 240 600 Output Total Balance 240 600 Intake, Oral 240 600 Patient 62.142 kg Weight Weight Bed scale Measurement Method Physical Exam General Appearance: Alert, Oriented X3, Cooperative, No Acute Distress Skin: No Rashes Skin Temp/Moisture Exam: Warm/Dry HEENT: Atraumatic, PERRLA, EOMI Neck: Supple, No JVD Cardiovascular: Normal S1, Normal S2, No Murmurs Lungs: Clear to Auscultation, Normal Air Movement Abdomen: Normal Bowel Sounds, Soft, mild pain on palpation of lower abdomen subjectively, nontender Neurological: Normal Speech Extremities: No Clubbing, No Cyanosis, No Edema Current Medications: Current Medications Sig/Lily Start time Last Medication Dose Route Stop Time Status Admin Acetaminophen 650 MG Q8P PRN 02/23 0115 AC PO Amlodipine Besylate 2.5 MG DAILY 02/23 900 AC 02/23 PO 09 Atorvastatin Calcium 10 MG 1700 02/23 1700 AC PO Donepezil HCl 5 MG DAILY 02/23 900 AC 02/23 PO 09 Ferrous Sulfate 325 MG DAILY 02/23 900 DC PO Lorazepam 0.5 MG DAILY NEEDED 02/220 AC PO 03/01 2159 Metoprolol Tartrate 12.5 MG BID 02/23 900 AC 02/23 PO 09 Multivitamins 1 TAB DAILY 02/23 900 AC PO Omeprazole 40 MG DAILY AC 02/23 700 CAN PO Pantoprazole Sodium 40 MG DAILY 02/23 0900 AC 02/23 IV 0909 Pantoprazole Sodium 0 .STK-MED ONE 02/22 2115 DC IV Pantoprazole Sodium 40 MG ONCE ONE 02/22 2045 DC 02/22 IV 02/22 Last 24 Hrs of Lab/Roland Results Last 24 Hrs of Labs/Mics: Laboratory Tests 02/23/18 0850: CBC w Diff Pending, WBC Pending, RBC Pending, Hgb Pending, Hct Pending, MCV Pending, MCH Pending, MCHC Pending, RDW Pending, Plt Count Pending, MPV Pending 02/22/18 1640: Anion Gap 10, Estimated GFR > 60, BUN/Creatinine Ratio 15.6, Glucose 87, Calcium 9.8, Total Bilirubin 0.9, AST 27, ALT 35, Alkaline Phosphatase 77, Troponin I < 0.01, Total Protein 6.8, Albumin 4.2, Globulin 2.6, Albumin/Globulin Ratio 1.6, Lipase 278, PT 12.0, INR 1.10, CBC w Diff NO MAN DIFF REQ, RBC 5.00, MCV 88.8, MCH 29.5, MCHC 33.2, RDW 13.4, MPV 7.4, Gran % 58.4, Lymphocytes % 32.0, Monocytes % 7.6, Eosinophils % 1.4, Basophils % 0.6, Absolute Granulocytes 3.2, Absolute Lymphocytes 1.8, Absolute Monocytes 0.4, Absolute Eosinophils 0.1, Absolute Basophils 0 Assessment/Plan Assessment: Patient is a 82 YO F with PMH significant for HTN, HLD, dementia presented to [facility] with progressive worsening of abdominal pain and black tarry stools started yesterday. Patient recently came the sigmoid swelling and needs follow up with entry level account manager outpatient. No recent colonoscopy. Vital signs at admission are relatively stable and remained stable overnight. Physical exam unremarkable mild lower abdomen discomfort. Labs are unremarkable. Imaging CT didnot show any acute findings except for sigmoid diverticulosis. Plan Admitted to [facility] Melena/abdominal pain * ? aspirin related * Continue IV protonix * Advance diet to regular as tolerating well * H&H remains rock stable at 15/44, normal BUN * bowel regimen added * GI consulted for questionable lesion/mild inflammation in the past and senility. HTN continue amlodipine Dementia Continue donepezil Tachycardia Continue metoprolol 12.5mg BID DVT prophylaxis ALPS given melena Code status DNR/DNI Problem List: 1. Abdominal pain 2. Weakness 3. Melena Pain Ratin Pain Location: lower abdomen Pain Goal: Pain 4 or less Pain Plan: tylenol Tomorrow's Labs & Rationales: none
--- NOTE | 2018-02-23 09:20 | PN- Att Addend ---
Attending Addendum Attending Brief Note Patient seen and examined. Due to her dementia she is unable to provide any significant history. She does not recall why he was in the hospital. I was able to speak with the who provided more history. Apparently patient has an issue with constipation. She was seen in September after not having a bowel movement for 6 days. She was prescribed laxatives and discharged home. She was to follow-up with the GI service due to concern raised on CT abdomen at that time of diffuse mural thickening distal sigmoid colon and rectum but no inflammatory pericolic stranding seen. Suspect underlying lesion. Moderate constipation was noted then with no obstruction. She was supposed to follow-up with the GI service at that time but did not. reports that she has been having intermittent abdominal pain. He reports that the pain abates spontaneously most of the time. Recently she has been having this pain with increasing frequency. He did contact the gastroenterology service and reports having an appointment to be seen formally on Saturday. He reports however that yesterday patient complained of not feeling well so he decided to bring her to the emergency room for evaluation. When questioned he reported that she did not specifically state that she was having more abdominal pain. He said that she just felt unwell overall and he was of the impression that she may have been anxious. also reports that patient has been having black stools. It is noted that she is on iron supplements. I did question him further about this. Apparently she takes this on her own accord. She was not prescribed this medication. Review of labs shows that she has never had an iron profile. Hemoglobin level has been within normal limits with a normal MCV. Stool guaiac was not done in the emergency room when she presented yesterday. This morning she denies any nausea vomiting. Denies any abdominal pain. She is hemodynamically stable. No issues reported by nursing staff. Vital Signs Date Time Temp Pulse Resp B/P B/P Pulse O2 O2 Flow FiO2 Mean Ox Delivery Rate 02/23 0908 57 148/76 02/23 0908 57 148/76 02/23 0709 97.7 57 18 148/76 99 02/22 2300 98.8 78 18 152/70 94 Room Air 02/22 2225 97.5 64 18 155/74 98 Room Air Room Air 02/22 1934 97.4 56 18 164/80 98 02/22 1714 98.4 74 18 164/86 97 Room Air Room Air 02/22 1535 97.0 71 20 182/98 98 Room Air General appearance: Well-developed and not in any acute distress. HEENT: Anicteric, no pallor, pupils equal and reactive. Neck: Supple with no jugular venous distention. Heart: S1-S2 regular with no audible murmur. Lungs: Adequate and symmetric air entry bilaterally with no added sounds. Abdomen: Nondistended with normal bowel sounds. Soft, nontender with no palpable masses. Extremities: No pedal edema. No cyanosis. Skin: Intact Laboratory Tests 02/23/18 0850: CBC w Diff Pending, WBC Pending, RBC Pending, Hgb Pending, Hct Pending, MCV Pending, MCH Pending, MCHC Pending, RDW Pending, Plt Count Pending, MPV Pending 02/22/18 1640: Anion Gap 10, Estimated GFR > 60, BUN/Creatinine Ratio 15.6, Glucose 87, Calcium 9.8, Total Bilirubin 0.9, AST 27, ALT 35, Alkaline Phosphatase 77, Troponin I < 0.01, Total Protein 6.8, Albumin 4.2, Globulin 2.6, Albumin/Globulin Ratio 1.6, Lipase 278, PT 12.0, INR 1.10, CBC w Diff NO MAN DIFF REQ, RBC 5.00, MCV 88.8, MCH 29.5, MCHC 33.2, RDW 13.4, MPV 7.4, Gran % 58.4, Lymphocytes % 32.0, Monocytes % 7.6, Eosinophils % 1.4, Basophils % 0.6, Absolute Granulocytes 3.2, Absolute Lymphocytes 1.8, Absolute Monocytes 0.4, Absolute Eosinophils 0.1, Absolute Basophils 0 Problems: 1. Abdominal discomfort; now resolved 2. Black stools 3. Constipation 4. Dementia Plan: -Follow-up H&H. -Discontinue iron supplements. -Begin patient on MiraLAX daily. -Resume diet. -CT abdomen in September raise concern for sigmoid/rectal lesion. There is no mention of this on the CT scan done yesterday. Follow-up recommendations of the GI service regarding her intermittent abdominal pain and CT findings. -Mobilize patient.
[2018-02-23 09:46] LABS: ABSOLUTE BASOPHIL COUNT 0 /CUMM (0.0-0.2); ABSOLUTE EOSINOPHIL COUNT 0.1 /CUMM (0.0-0.7); ABSOLUTE GRANULOCYTE CT 4.5 /CUMM (1.4-6.5); ABSOLUTE LYMPH COUNT 2.2 /CUMM (1.2-3.4); ABSOLUTE MONOCYTE COUNT 0.5 /CUMM (0.10-0.60); BASOPHIL % 0.5 % (0.0-2.0); EOSINOPHIL % 1.3 % (0-5); GRANULOCYTE % 61.5 % (42.2-75.2); HEMATOCRIT 44.5 % (37-47); MEAN CORPUSCULAR HGB 29.9 PG (27.0-31.0); MEAN CORPUSCULAR HGB CONC 34.2 G/DL (33.0-37.0); MEAN CORPUSCULAR VOLUME 87.5 FL (81.0-99.0); MEAN PLATELET VOLUME 7.3 FL (7.4-10.4); PLATELET COUNT 307 /CUMM (130-400); RBC DISTRIBUTION WIDTH 13.3 % (11.5-14.5); RED BLOOD CELL CT 5.09 /CUMM (4.20-5.40); WHITE BLOOD CELL COUNT 7.3 /CUMM (4.8-10.8)
[2018-02-23 14:48] VITALS: BP 140/72
--- NOTE | 2018-02-23 16:57 | Cons- Gastroenterology ---
General Information and HPI Consulting Request Date of Consult: 02/23/18 Requested By: Antonella Busby MD Reason for Consult: 1. Lower Abdominal Pain 2. Melena Source of Information: family, Electronic Medical Record Exam Limitations: unable to give history History of Present Illness: Patient is an 82-year-old female with mild dementia but who signs her own consents. She has had lower abdomina pain since about six months ago. A CT scan of the abdomen and pelvis was obtained early in September of this year. The impression stated there was "Diffuse mural thickening distal sigmoid colon and rectum but no inflammatory pericolic stranding seen. Suspect underlying lesion and Recommend sigmoidoscopy. There was also Moderate constipation. No obstruction." Patient saw her primary care physician Elizabeth Tejeda MD who scheduled an appointment to see Sony Mcneill MD this Saturday. However patient had increasing lower abdominal pain as well as melenic stools and was brought to the ED last night. Stools were black, tarry, and Hemoccult positive. Ms. Hallman has not taken Pepto-Bismol but was on an iron supplement which she has been taking for some time without every having had melenic stools before. Currently she is comfortable. Much of this history is supplied by her . Patient has had chronic GI issues for many years. However, they have become accelerated recently. She last had a colonoscopy in 2003 that was entirely normal. Allergies/Medications Allergies: Coded Allergies: No Known Allergies (02/22/18) Home Med List: Amlodipine Besylate 2.5 MG TABLET 2.5 MG PO DAILY HTN (Reported) Aspirin (Aspirin*) 81 MG TAB.CHEW 81 MG PO DAILY CARDIAC (Reported) Atorvastatin Calcium 10 MG TABLET 10 MG PO DAILY HTN (Reported) Cholecalciferol (Vitamin D3) (Vitamin D3) 1,000 UNIT CAPSULE 1 CAP PO DAILY SUPPLEMENT (Reported) Donepezil HCl 5 MG TABLET 5 MG PO DAILY MEMORY LOSS (Reported) Ferrous Sulfate 325 MG (65 MG IRON) TABLET 1 TAB PO DAILY IRON, VITAMIN ( Reported) Lorazepam 0.5 MG TABLET 0.5 MG PO DAILY NEEDED ANXIETY (Reported) Multivitamin (Multivitamins) 1 EACH CAPSULE 1 CAP PO DAILY SUPPLEMENT ( Reported) Ondansetron (Zofran Odt) 4 MG TAB.RAPDIS 4 MG SL AD NAUSEA (Reported) Current Medications: Current Medications Sig/Lily Start time Last Medication Dose Route Stop Time Status Admin Acetaminophen 650 MG Q8P PRN 02/23 0115 AC PO Amlodipine Besylate 2.5 MG DAILY 02/23 0900 AC 02/23 PO 0908 Atorvastatin Calcium 10 MG 1700 02/23 1700 AC 02/23 PO 1635 Donepezil HCl 5 MG DAILY 02/23 0900 AC 02/23 PO 0908 Ferrous Sulfate 325 MG DAILY 02/23 0900 DC PO Lorazepam 0.5 MG DAILY NEEDED 02/22 2200 AC PO 03/01 2159 Metoprolol Tartrate 12.5 MG BID 02/23 0900 AC 02/23 PO 0908 Multivitamins 1 TAB DAILY 02/23 0900 AC 02/23 PO 1113 Omeprazole 40 MG DAILY AC 02/24 0700 AC PO Omeprazole 40 MG DAILY AC 02/23 0700 CAN PO Pantoprazole Sodium 40 MG DAILY 02/23 0900 DC 02/23 IV 0909 Pantoprazole Sodium 0 .STK-MED ONE 02/22 2115 DC IV Pantoprazole Sodium 40 MG ONCE ONE 02/22 2045 DC 02/22 IV 02/22 2046 2131 Polyethylene Glycol 17 GM DAILY 02/23 1637 UNVr PO Polyethylene Glycol 17 GM DAILY 02/23 0943 AC 02/23 PO 1113 Past History Travel History Traveled to [place] past 21 day No Medical History Blood Transfusion Hx: No Neurological: memory loss EENT: cataracts, hearing loss Cardiovascular: NONE (memory loss), hypertension, hyperlipidemia Respiratory: NONE Gastrointestinal: TWISTED INTESTINE RESOLVED Hepatic: NONE Renal: NONE Musculoskeletal: NONE Psychiatric: anxiety Endocrine: NONE Blood Disorders: NONE Cancer(s): 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 Home Services at Home: None Smoking Status: Never Smoked ETOH Use: occasional use Illicit Drug Use: denies illicit drug use Functional Ability ADLs Independent: dressing, eating, toileting, bathing. Ambulation: independent IADLs Independent: shopping, housework, finances, food prep, telephone, transportation , medication admin. Review of Systems Review of Systems Constitutional: Reports: no symptoms. EENTM: Reports: no symptoms. Cardiovascular: Reports: no symptoms. Respiratory: Reports: no symptoms. GI: Reports: see HPI. Genitourinary: Reports: no symptoms. Musculoskeletal: Reports: no symptoms. Skin: Reports: no symptoms. Neurological/Psychological: Reports: see HPI. Hematologic/Endocrine: Reports: no symptoms. Exam & Diagnostic Data Vital Signs and I&O Vital Signs Date Time Temp Pulse Resp B/P B/P Pulse O2 O2 Flow FiO2 Mean Ox Delivery Rate 02/23 1448 64 20 140/72 99 Room Air 02/23 0908 57 148/76 02/23 0908 57 148/76 02/23 0709 97.7 57 18 148/76 99 02/22 2300 98.8 78 18 152/70 94 Room Air 02/22 2225 97.5 64 18 155/74 98 Room Air Room Air 02/22 1934 97.4 56 18 164/80 98 02/22 1714 98.4 74 18 164/86 97 Room Air Room Air Intake & Output 02/23 1600 02/23 0400 02/22 1600 02/22 0400 02/21 1600 02/21 0400 Intake Total 850 600 Output Total Balance 850 600 Intake, IV 10 Intake, Oral 840 600 Patient 137 lb 136 lb Weight Weight Bed scale Reported by Patient Measurement Method Physical Exam General Appearance: no apparent distress, alert, awake Head: atraumatic, normal appearance Eyes: Bilateral: normal appearance. Ears, Nose, Throat: hearing grossly normal Neck: supple, full range of motion Respiratory: normal breath sounds, chest non-tender, no respiratory distress, lungs clear Cardiovascular: regular rate/rhythm, Normal S1, S2 without rub, murmur, or gallop Gastrointestinal: normal bowel sounds, soft, non-tender, no organomegaly Rectal: heme positive stool Neurologic/Psych: awake, alert Cranial Nerves: cranial nerves II-XII grossly intact Skin: normal color, warm/dry Results Pertinent Lab Results: Laboratory Tests 02/23 02/22 0850 1640 Chemistry Sodium (137 - 145 mmol/L) 142 Potassium (3.5 - 5.1 mmol/L) 4.3 Chloride (98 - 107 mmol/L) 104 Carbon Dioxide (22 - 30 mmol/L) 28 Anion Gap (5 - 16) 10 BUN (7 - 17 mg/dL) 14 Creatinine (0.5 - 1.0 mg/dL) 0.9 Estimated GFR (>60 ml/min) > 60 BUN/Creatinine Ratio (7 - 25 %) 15.6 Glucose (65 - 99 mg/dL) 87 Calcium (8.4 - 10.2 mg/dL) 9.8 Total Bilirubin (0.2 - 1.3 mg/dL) 0.9 AST (14 - 36 U/L) 27 ALT (9 - 52 U/L) 35 Alkaline Phosphatase (<127 U/L) 77 Troponin I (< 0.11 ng/ml) < 0.01 Total Protein (6.3 - 8.2 g/dL) 6.8 Albumin (3.5 - 5.0 g/dL) 4.2 Globulin (1.9 - 4.2 gm/dL) 2.6 Albumin/Globulin Ratio (1.1 - 2.2 %) 1.6 Lipase (23 - 300 U/L) 278 Coagulation PT (9.4 - 12.5 SEC) 12.0 INR (0.90 - 1.19) 1.10 Hematology CBC w Diff NO MAN DIFF REQ NO MAN DIFF REQ WBC (4.8 - 10.8 /CUMM) 7.3 5.6 RBC (4.20 - 5.40 /CUMM) 5.09 5.00 Hgb (12.0 - 16.0 G/DL) 15.2 14.8 Hct (37 - 47 %) 44.5 44.4 MCV (81.0 - 99.0 FL) 87.5 88.8 MCH (27.0 - 31.0 PG) 29.9 29.5 MCHC (33.0 - 37.0 G/DL) 34.2 33.2 RDW (11.5 - 14.5 %) 13.3 13.4 Plt Count (130 - 400 /CUMM) 307 277 MPV (7.4 - 10.4 FL) 7.3 L 7.4 Gran % (42.2 - 75.2 %) 61.5 58.4 Lymphocytes % (20.5 - 51.1 %) 29.9 32.0 Monocytes % (1.7 - 9.3 %) 6.8 7.6 Eosinophils % (0 - 5 %) 1.3 1.4 Basophils % (0.0 - 2.0 %) 0.5 0.6 Absolute Granulocytes (1.4 - 6.5 /CUMM) 4.5 3.2 Absolute Lymphocytes (1.2 - 3.4 /CUMM) 2.2 1.8 Absolute Monocytes (0.10 - 0.60 /CUMM) 0.5 0.4 Absolute Eosinophils (0.0 - 0.7 /CUMM) 0.1 0.1 Absolute Basophils (0.0 - 0.2 /CUMM) 0 0 Assessment/Plan Assessment/Recommendations: ASSESSMENT: 1. Lower Abdomina Pain 2. Abnormal CT Scan -- repeat CT Scan within normal limits. / initial CT reflective of stercoral ulceration in the setting of constipation. 3. Melena without change in H/H 4. Hemoccult Positive Stool RECOMMENDATIONS: 1. EGD and Colonoscopy 2. Prep tonight. 3. Clear Liquid Diet now 4. Golytely 2 liters at 5 p.m. 5. Then Saturday morning 5 am Golytely 2 liters. NPO after that. 6. Risks and benefits of EGD and colonoscopy discussed with patient with her present . Consult Acknowledgment - Thank you for your consult request.
[2018-02-23 21:20] VITALS: BP 132/70
[2018-02-24] MEDS ORDERED: OMEPRAZOLE40 M1 PO (07:25)
--- NOTE | 2018-02-24 07:29 | Patient Discharge Instructions ---
Discharge Instructions General Discharge Information You were seen/treated for: Melena Abdominal pain Watch for these problems: Please return to the ER in case of any worsening abdominal pain or bleeding per retum. Special Instructions: Please follow up with your PCP and cooker process cheese within a week after discharge. Diet Continue normal diet: Yes Activity Full Activity/No Limits: Yes Acute Coronary Syndrome Inclusion Criteria At DC or during hospital stay patient has or had the following: ACS DIAGNOSIS No Discharge Core Measures Meds if any: Prescribed or Continued at Discharge Meds if any: NOT Prescribed or Continued at Discharge Congestive Heart Failure Inclusion Criteria At DC or during hospital stay patient has or had the following: CHF DIAGNOSIS No Discharge Core Measures Meds if any: Prescribed or Continued at Discharge Meds if any: NOT Prescribed or Continued at Discharge Cerebrovascular accident Inclusion Criteria At DC or during hospital stay patient has or had the following: CVA/TIA Diagnosis No Discharge Core Measures Meds if any: Prescribed or Continued at Discharge Meds if any: NOT Prescribed or Continued at Discharge Venous thromboembolism Inclusion Criteria VTE Diagnosis No VTE Type NONE VTE Confirmed by (Test) NONE Discharge Core Measures - Per Current guidelines, there needs to be overlap - treatment for the first 5 days of Warfarin therapy. - If discharged on Warfarin prior to 5 days of - overlap therapy, the patient will need to be - assessed for post discharge needs including - *Post discharge parental anticoagulation - *Warfarin and/or parental anticoagulation education - *Follow up date to check INR post discharge At least 5 days overlap therapy as Inpatient No Meds if any: Prescribed or Continued at Discharge Note: Overlap Therapy is Warfarin and Anticoagulant Meds if any: NOT Prescribed or Continued at Discharge
[2018-02-24] MEDS ORDERED: METOPROLOL TART25 M1 PO (07:30)
--- NOTE | 2018-02-24 09:41 | Event Note ---
Event Note Event Note: I was informed this AM that pt wished to leave AMA. When I came in to see she was fully dressed and her was at bedside. In my assessment pt was only alert and oriented to herself. She did not know why she came to the hospital and she did not know the date. She had been scheduled for EGD and colonoscopy this AM, but did not complete the prep this AM. I discussed the importance of the procedure for possible resolution of her melena. She did not seem to comprehend the role of the procedure and furthermore, when I explained the gravity of GI bleed she did not seem to fully comprehend the consequences. I took the aside and explained that in my assessment pt was not oriented and unable to comprehend the consequences of her decisions and as such could not leave AMA at this time. verbalized that he understood the imporance of further work up for GI bleeding but did not want to restrain his physically or chemically. He stated that he would take his home if that is what she wished. I clearly explained that given her lack of capacity as her he was the surrogate decision maker and that he would have to take full responsibilty for the decision even if it resulted in life threatening bleeding or . He was in agreement and he signed AMA paperwork. The latter half of this conversation was witnessed by nursing assistant. I offered the contact information of Dr. Stevenson the design agent for further work up of her dementia. denied further home services or aid. I counseled them to come back if pt had further episodes of GI bleeding or otherwise feeling unwell. ADDENDUM: This patient left the hospital before I came to see the patient. Apparently her signed AMA and took her. Kathy Small MD.
== END 2018-02-24 08:00 | disposition left against medical advice (07) | DRG 379 ==
LOC: ERH 15:31 → 2NB 21:00 → ERHI 21:00 → ENRESERV 21:51 → ENTRNSPT 22:25 → EDTRNSPTSTS 22:29 → 2NB 22:32 → CMPTRNSPT 22:54 → 2NB 02-24 08:00
PROVIDERS: Emergency Medicine; Internal Medicine
DX: K92.1 Melena (principal); K28.9 Gastrojejunal ulcer, unspecified as acute or chronic, without hemorrhage or perforation; F03.90 Unspecified dementia, unspecified severity, without behavioral disturbance, psychotic disturbance, mood disturbance, and anxiety; R10.9 Unspecified abdominal pain; E78.5 Hyperlipidemia, unspecified; K59.00 Constipation, unspecified; K63.9 Disease of intestine, unspecified; I10 Essential (primary) hypertension; Z66 Do not resuscitate; Z96.649 Presence of unspecified artificial hip joint; H91.90 Unspecified hearing loss, unspecified ear; R00.0 Tachycardia, unspecified
CPT/HCPCS: 2NBSP; 36592; 74177; 93005; 93010; 96374

== ENCOUNTER 2018-04-01 16:12 | Inpatient (IN) | payer OTHER, MEDICARE ==
[~2018-04-01] VITALS: Ht 160 cm; Wt 58.7 kg
[~2018-04-01 16:12] MED LIST changes: +METOPROLOL TART25 M1 PO; +OMEPRAZOLE40 M1 PO
[2018-04-01 17:46] LABS: ABSOLUTE BASOPHIL COUNT 0 /CUMM (0.0-0.2); ABSOLUTE EOSINOPHIL COUNT 0.1 /CUMM (0.0-0.7); ABSOLUTE GRANULOCYTE CT 7.6 /CUMM (1.4-6.5); ABSOLUTE LYMPH COUNT 1.4 /CUMM (1.2-3.4); ABSOLUTE MONOCYTE COUNT 0.7 /CUMM (0.10-0.60); BASOPHIL % 0.3 % (0.0-2.0); EOSINOPHIL % 0.6 % (0-5); GRANULOCYTE % 77.5 % (42.2-75.2); HEMATOCRIT 44.7 % (37-47); MEAN CORPUSCULAR HGB 30.4 PG (27.0-31.0); MEAN CORPUSCULAR HGB CONC 34.5 G/DL (33.0-37.0); MEAN CORPUSCULAR VOLUME 88.1 FL (81.0-99.0); MEAN PLATELET VOLUME 7.5 FL (7.4-10.4); PLATELET COUNT 292 /CUMM (130-400); RBC DISTRIBUTION WIDTH 14.1 % (11.5-14.5); RED BLOOD CELL CT 5.07 /CUMM (4.20-5.40); WHITE BLOOD CELL COUNT 9.8 /CUMM (4.8-10.8)
--- NOTE | 2018-04-01 19:09 | ED GI/GU/ABDOMINAL COMPLAINT ---
History of Present Illness General Chief Complaint: Abdominal Pain/Flank Pain Stated Complaint: ABD PAIN X2 WEEKS Source: patient, family Exam Limitations: dementia Vital Signs & Intake/Output Vital Signs & Intake/Output Vital Signs Date Time Temp Pulse Resp B/P B/P Pulse O2 O2 Flow FiO2 Mean Ox Delivery Rate 04/01 1957 62 20 176/86 99 Room Air 04/01 1705 98.2 64 20 161/88 99 Allergies Coded Allergies: No Known Allergies (02/22/18) Reconcile Medications Amlodipine Besylate 2.5 MG TABLET 2.5 MG PO DAILY HTN (Reported) Aspirin (Aspirin*) 81 MG TAB.CHEW 81 MG PO DAILY CARDIAC (Reported) Atorvastatin Calcium 10 MG TABLET 10 MG PO DAILY HTN (Reported) Cholecalciferol (Vitamin D3) (Vitamin D3) 1,000 UNIT CAPSULE 1 CAP PO DAILY SUPPLEMENT (Reported) Donepezil HCl 5 MG TABLET 5 MG PO DAILY MEMORY LOSS (Reported) Ferrous Sulfate 325 MG (65 MG IRON) TABLET 1 TAB PO DAILY IRON, VITAMIN ( Reported) Lorazepam 0.5 MG TABLET 0.5 MG PO DAILY NEEDED ANXIETY (Reported) Metoprolol Tartrate 25 MG TABLET 0.5 TAB PO BID TACHYCARDIA Multivitamin (Multivitamins) 1 EACH CAPSULE 1 CAP PO DAILY SUPPLEMENT ( Reported) Omeprazole 40 MG CAPSULE. 1 CAP PO DAILY GI Ondansetron (Zofran Odt) 4 MG TAB.RAPDIS 4 MG SL AD NAUSEA (Reported) Triage Note: PT VERY VAGUE REPORTS THAT SHE HAS BEEN HAVING ABD PAIN NO NVD NO OTHER CO PT VERY VAGUE ON HUSBANDS ARRIVAL PT ON MEDS FOR DEMENTIA Triage Nurses Notes Reviewed? yes ? N Is pt currently ? No Onset: Gradual Duration: constant Quality/Severity: aching, cramping, moderate Severity Numbers: 5 Location: generalized abdomen Radiation: no radiation HPI: Patient is a 83-year-old female with a past medical history of mild dementia, hypertension, hyperlipidemia anxiety who was admitted and discharged from [facility] 5 weeks ago for concerns of melena patient left AMA and followed up with Dr. Mcneill who performed colonoscopy and endoscopy which old records indicate that there was polyps diverticulosis and internal hemorrhoids from colonoscopy and was patient return to the emergency room with concerns of a 3 to four-day history of abdominal pain Patient is complaining of urgent frequency of urination Patient is tolerating PO however states that eating makes pain worse Last bowel movement was today no blood no melena Denies any fever chills dysuria or hematuria vaginal bleeding or discharge cough nausea vomiting (Mor Martinez) Past History Travel History Traveled to [place] past 21 day No Medical History Any Pertinent Medical History? 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 No (Mor Martinez) Review of Systems Review of Systems Constitutional: Reports: no symptoms. EENTM: Reports: no symptoms. Respiratory: Reports: no symptoms. Cardiovascular: Reports: no symptoms. GI: Reports: see HPI, abdominal pain. Genitourinary: Reports: see HPI. Musculoskeletal: Reports: no symptoms. Skin: Reports: no symptoms. Neurological/Psychological: Reports: no symptoms. Hematologic/Endocrine: Reports: no symptoms. Immunologic/Allergic: Reports: no symptoms. All Other Systems: Reviewed and Negative (Mor Martinez) Physical Exam Physical Exam General Appearance: alert, lethargic Head: atraumatic Eyes: Bilateral: normal appearance. Ears, Nose, Throat, Mouth: hearing grossly normal Neck: normal inspection Respiratory: no respiratory distress Cardiovascular: regular rate/rhythm Gastrointestinal: soft, tenderness Extremities: normal range of motion Skin: intact, normal color Core Measures ACS in differential dx? No Sepsis Present: No Sepsis Focused Exam Completed? No (Mor Martinez) Progress Differential Diagnosis: AAA, AMI, appendicitis, biliary colic, bowel obstruction , colon cancer, cholecystitis, diverticulitis, endometritis, esophageal varices, gastritis, hepatitis, hernia, hemorrhoids, ischemic bowel, inflamm bowel dis, kidney stone, ovarian cyst, ovarian torsion, pancreatitis, PID/cervicitis, peptic ulcer, PUD/GERD, perforated viscous, SBO, UTI/pyelo Plan of Care: Orders Procedure Date/time Status ED Holding Orders 04/01 2014 Active Admit to inpatient 04/01 2014 Active Vital Signs 04/01 2014 Active Code Status 04/01 2014 Active LACTIC ACID 04/01 1959 Active EKG 04/01 1931 Active Add-on Test (ER Only) 04/01 172 Active CULTURE,URINE 04/01 1700 Active LIPASE 04/01 1659 Complete LACTIC ACID 04/01 1659 Complete COMPREHENSIVE METABOLIC PANEL 04/01 1659 Complete CBC WITHOUT DIFFERENTIAL 04/01 1659 Complete AMYLASE 04/01 1659 Complete URINALYSIS 04/01 1658 Complete Current Medications Sig/Lily Start time Last Medication Dose Stop Time Status Admin Metronidazole 500 MG ONCE ONE 04/01 1930 AC 04/01 (Flagyl) 04/01 N/A 1 UNIT (No Carrier) Sodium Chloride 1,000 ML BOLUS ONE 04/01 1930 AC 04/01 (Normal Saline 0.9%) 04/01 Laboratory Tests 04/01/18 1734: Anion Gap 11, Estimated GFR > 60, BUN/Creatinine Ratio 23.8, Glucose 76, Lactic Acid 0.7, Calcium 9.9, Total Bilirubin 0.6, AST 38 H, ALT 45, Alkaline Phosphatase 69, Total Protein 7.0, Albumin 4.4, Globulin 2.6, Albumin/Globulin Ratio 1.7, Amylase 105, Lipase 162, CBC w Diff NO MAN DIFF REQ, RBC 5.07, MCV 88.1, MCH 30.4, MCHC 34.5, RDW 14.1, MPV 7.5, Gran % 77.5 H, Lymphocytes % 14.3 L, Monocytes % 7.3, Eosinophils % 0.6, Basophils % 0.3, Absolute Granulocytes 7.6 H, Absolute Lymphocytes 1.4, Absolute Monocytes 0.7 H, Absolute Eosinophils 0.1, Absolute Basophils 0 04/01/181699: Urine Color STRAW, Urine Clarity HAZY H, Urine pH 6.0, Ur Specific [place] <= 1.005, Urine Protein TRACE H, Urine Ketones NEG, Urine Nitrite POS H, Urine Bilirubin NEG, Urine Urobilinogen 0.2, Ur Leukocyte Esterase LARGE H, Ur Microscopic SEDIMENT EXAMINED, Urine RBC 5-10 H, Urine WBC 25-50 H, Ur Epithelial Cells RARE, Urine Bacteria RARE H, Urine Mucus RARE, Urine Hemoglobin LARGE H, Urine Glucose NEG Microbiology 04/01 1700 URINE ROUT: Urine Culture - RECD Patient on initial presentation is noted to be lethargic however no apparent distress afebrile now concerned to sepsis however CT scan does show concerns of diverticulitis. Discussed admission with patient and were aware and have no questions. Diagnostic Imaging: Viewed by Me: CT Scan. Radiology Impression: acute abnormality Initial ED EKG: normal QRS complex, 54 BPM, SINUS RHYTHM Comments: PATIENT: LM MULLER PRESENT AGE: 83 PATIENT ACCOUNT NO: [id number] : 37 LOCATION: [facility] ORDERING PHYSICIAN: Mor BECKETT SERVICE DATE: 04/01/18 EXAM TYPE: CAT - CT ABD & PELVIS W IV CONTRAST EXAMINATION: CT ABDOMEN AND PELVIS WITH CONTRAST CLINICAL INFORMATION: Abdominal pain. COMPARISON: 02/22/2018. TECHNIQUE: Contiguous axial thin section helical images of the abdomen and pelvis were performed following the administration of 95 mL of intravenous Optiray 320. The data set was reformatted in the coronal and sagittal planes and reviewed on an independent workstation. DLP: 299 mGy-cm. FINDINGS: The visualized lung bases are clear. The visualized portions of the heart are unremarkable. The liver is of normal size and attenuation without focal lesions nor intrahepatic biliary ductal dilation. A normal gallbladder is identified. There is no wall thickening or discernible pericholecystic fluid. The spleen, pancreas, adrenal glands are unremarkable. Both kidneys are of normal size and attenuation without hydronephrosis or nephrolithiasis. Again identified are numerous parapelvic cysts. Following the administration of IV contrast, prompt symmetric nephrograms are displayed. There is no abdominal free fluid. There is neither mesenteric nor retroperitoneal lymphadenopathy. There is extensive sigmoid diverticulosis. There is an area of wall thickening with mucosal enhancement and trace adjacent mesenteric fat stranding. Otherwise, unremarkable unopacified loops of small and large bowel are identified. There is no pelvic free fluid. The urinary bladder is unremarkable. There is neither pelvic nor inguinal lymphadenopathy. Bone windows: Neither sclerotic nor lytic bone lesions are identified. A right hip prosthesis is intact. IMPRESSION: Sigmoid diverticulosis with focal area of likely diverticulitis. No drainable fluid collections. DICTATED BY: Sivakumar Ritchie MD DATE/TIME DICTATED:04/01/181915 PROGRAMMER OPERATOR NUMERICAL CONTROL:MATILDA DATE/TIME TRANSCRIBED:04/01/181915 CONFIDENTIAL, DO NOT COPY WITHOUT APPROPRIATE AUTHORIZATION. <Electronically signed in Other Vendor System> SIGNED BY: Sivakumar Ritchie MD 04/01/181923 (Mor Martinez) Departure Departure Disposition: STILL A PATIENT Condition: Stable Clinical Impression Primary Impression: Diverticulitis Referrals: Ileana SHERIDAN,Elizabeth Murray (PCP/Family) Departure Forms: Customer Survey General Discharge Information Admission Note Spoke With: Zamzam Cassidy MD Documentation of Exam: Documentation of any treatments & extenuating circumstances including Concerns Regarding Discharge (functional status, medication knowledge or non-compliance, living conditions, etc.) that warrant an admission rather than observation: [ Patient requires bowel rest pain management repeat labs gastroenterology consultation IV fluids] (Mor Martinez) PA/CONSULTANT INTERN Co-Sign Statement Statement: ED Attending supervision documentation- [X] I saw and evaluated the patient. I have also reviewed all the pertinent lab results and diagnostic results. I agree with the findings and the plan of care as documented in the PA's/CONSULTANT INTERN's documentation. [] I have reviewed the ED Record and agree with the PA's/CONSULTANT INTERN's documentation. [] Additions or exceptions (if any) to the PAs/CONSULTANT INTERN's note and plan are summarized below: [ 83-year-old female with acute diverticulitis. She is being admitted to the hospital for IV antibiotics. She has significant suprapubic abdominal tenderness. ] (Lorenzo Rivera DO)
--- NOTE | 2018-04-01 19:24 | CT SCAN REPORT ---
EXAMINATION: CT ABDOMEN AND PELVIS WITH CONTRAST CLINICAL INFORMATION: Abdominal pain. COMPARISON: 02/22/2018. TECHNIQUE: Contiguous axial thin section helical images of the abdomen and pelvis were performed following the administration of 95 mL of intravenous Optiray 320. The data set was reformatted in the coronal and sagittal planes and reviewed on an independent workstation. DLP: 299 mGy-cm. FINDINGS: The visualized lung bases are clear. The visualized portions of the heart are unremarkable. The liver is of normal size and attenuation without focal lesions nor intrahepatic biliary ductal dilation. A normal gallbladder is identified. There is no wall thickening or discernible pericholecystic fluid. The spleen, pancreas, adrenal glands are unremarkable. Both kidneys are of normal size and attenuation without hydronephrosis or nephrolithiasis. Again identified are numerous parapelvic cysts. Following the administration of IV contrast, prompt symmetric nephrograms are displayed. There is no abdominal free fluid. There is neither mesenteric nor retroperitoneal lymphadenopathy. There is extensive sigmoid diverticulosis. There is an area of wall thickening with mucosal enhancement and trace adjacent mesenteric fat stranding. Otherwise, unremarkable unopacified loops of small and large bowel are identified. There is no pelvic free fluid. The urinary bladder is unremarkable. There is neither pelvic nor inguinal lymphadenopathy. Bone windows: Neither sclerotic nor lytic bone lesions are identified. A right hip prosthesis is intact. IMPRESSION: Sigmoid diverticulosis with focal area of likely diverticulitis. No drainable fluid collections.
--- NOTE | 2018-04-01 20:21 | History & Physical ---
Jean-Paul Freeman 04/01/18 2020: General Information and HPI MD Statement: I have seen and personally examined LM HALLMAN and documented this H&P. The patient is a 83 year old F who presented with a patient stated chief complaint of [abdominal pain x2days]. Source of Information: patient, family, old records History of Present Illness: Mrs Hallman is an 83 yo F with a PMH of HTN, HLD, Dementia who presents with a 2 day history of worsening abdominal pain that is squeezing in nature, radiates toward center of stomach, exacerbated by taking in solids, tolerates PO liquids, comes in waves and has fewer pain free periods since yesterday. Does deny nausea /vomiting, although (?) episode of gagging this morning per . Denies diarrhea, is taking Miralax for chronic constipation. Has not had any recent sick contacts, denies fevers/dizziness/blood in stool/urinary symptoms. Pt was recently admitted back in January for melena, and had undergone a colonoscopy and EGD by Dr. Mcneill on 02/23 before leaving [place] on 02/24. Followed up with Dr Mcneill outpatient for results which showed atrophic gastritis and left- sided diverticulosis. PMH: Dementia, HTN, HLD Allergies: NKDA Sx: appendectomy, hip replacement, r ankle Soc: Noncontributory ROS Positive for: Constipation Negative for: Fevers, Weight loss, Chest pain, SOB, Urinary Symptoms, LE edema Allergies/Medications Allergies: Coded Allergies: No Known Allergies (02/22/18) Home Med list Amlodipine Besylate 2.5 MG TABLET 2.5 MG PO DAILY HTN (Reported) Aspirin (Aspirin*) 81 MG TAB.CHEW 81 MG PO DAILY CARDIAC (Reported) Atorvastatin Calcium 10 MG TABLET 10 MG PO DAILY HTN (Reported) Cholecalciferol (Vitamin D3) (Vitamin D3) 1,000 UNIT CAPSULE 1 CAP PO DAILY SUPPLEMENT (Reported) Donepezil HCl 5 MG TABLET 5 MG PO DAILY MEMORY LOSS (Reported) Ferrous Sulfate 325 MG (65 MG IRON) TABLET 1 TAB PO DAILY IRON, VITAMIN ( Reported) Lorazepam 0.5 MG TABLET 0.5 MG PO DAILY NEEDED ANXIETY (Reported) Metoprolol Tartrate 25 MG TABLET 0.5 TAB PO BID TACHYCARDIA Multivitamin (Multivitamins) 1 EACH CAPSULE 1 CAP PO DAILY SUPPLEMENT ( Reported) Omeprazole 40 MG CAPSULE.DR 1 CAP PO DAILY GI Ondansetron (Zofran Odt) 4 MG TAB.RAPDIS 4 MG SL AD NAUSEA (Reported) Past History Travel History Traveled to [place] past 21 day No Medical History Neurological: memory loss EENT: cataracts, hearing loss Cardiovascular: NONE (memory loss), hypertension, hyperlipidemia Respiratory: NONE Gastrointestinal: TWISTED INTESTINE RESOLVED Hepatic: NONE Renal: NONE Musculoskeletal: NONE Psychiatric: anxiety Endocrine: NONE Blood Disorders: NONE Cancer(s): NONE 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 Ambulation: independent IADLs Independent: shopping, housework, finances, food prep, telephone, transportation , medication admin. Review of Systems Review of Systems Constitutional: Reports: see HPI. Exam & Diagnostic Data Last 24 Hrs of Vital Signs/I&O Vital Signs Date Time Temp Pulse Resp B/P B/P Pulse O2 O2 Flow FiO2 Mean Ox Delivery Rate 04/02 0001 53 148/74 04/01 2135 96.8 53 20 148/74 98 04/01 1957 62 20 176/86 99 Room Air 04/01 1705 98.2 64 20 161/88 99 Intake & Output 04/02 0800 04/02 0000 04/01 1600 Intake Total 1200 Output Total Balance 1200 Intake, IV 1200 Intake, Oral 0 Patient 140 lb Weight Physical Exam General Appearance Alert, Oriented X3, Cooperative, No Acute Distress Skin No Rashes Skin Temp/Moisture Exam: Warm/Dry Cardiovascular Regular Rate, Normal S1, Normal S2 Lungs Clear to Auscultation, Normal Air Movement Abdomen diffuse tenderness, most pronounced in suprapubic region; no peritoneal signs Neurological Normal Speech, Strength at 5/5 X4 Ext, Sensation Intact Assessment/Plan Assessment: Mrs Hallamn is an 83yo F with a PMH of HTN, hyperlipidemia, dementia who presents with abdominal pain 2 days, with CT findings significant for diverticulitis, and an inability to take p.o. medications, admitted for management of diverticulitis #Diverticulitis likely diverticulitis #Asymptomatic bacteriuria #Dementia #Hypertension medications DVT prophylaxis IV access N.p.o. DNR/DNI Disposition As Ranked By This Provider Problem List: 1. Diverticulitis Core Measures/Misc (05/19) Acute Coronary Syndrome ACS Diagnosis: No Congestive Heart Failure Congestive Heart Failure Diagnosis No Cerebrovascular Accident CVA/TIA Diagnosis: No VTE (View Protocol) VTE Risk Factors Age>40 No Mechanical VTE Prophylaxis d/t N/A MechProphylax Ordered No VTE Pharm Prophylaxis d/t NA PharmProphylax ordered Sepsis (View protocol) Sepsis Present: No If YES complete Sepsis Event Note If YES complete Sepsis Event Note Katie Devlin 04/02/18 0249: Core Measures/Misc (05/19) Sepsis (View protocol) If YES complete Sepsis Event Note If YES complete Sepsis Event Note Resident Review Statement Resident Statement: examined this patient, discussed with commander internal affairs, agreed with commander internal affairs, discussed with family, reviewed EMR data (avail) Other Findings: 82 year old woman with PMH significant for HTN, HLD, dementia coming in for evaluation of abdominal pain of 2 days duration. Patient states that she has been having mid epigastric pain especially when she eats not associated with any nausea vomiting or diarrhea. Does endorse chronic constipation which MiraLAX which he takes at home is not helping. Her last admission was in February 2016 after which she left AMA however she did have a upper and lower endoscopy that was done and was significant only for atrophic gastritis and left-sided diverticulosis. She is followed by Dr. Mcneill. Review of systems as above. Vitals significant only for mild elevated blood pressure of 136/86 examination significant for some mild lower abdominal pain to palpation. Rest of examination as above. Labs significant for mild transaminitis, normal amylase and light base, lactic acid 0.7 UA significant for nitrate and leukocyte esterase. CT abdomen with contrast significant for numerous parapelvic cysts and Sigmoid diverticulosis with focal area of likely diverticulitis. No drainable fluid collections. Problem list Acute uncomplicated diverticulitis Asymptomatic bacteriuria Hypertension Dementia Plan Admit to general medicine floor, vitals per protocol We will keep n.p.o., continue IV fluids Continue with IV ceftriaxone and Flagyl GI consult in a.m. We will continue her home medications DVT prophylaxis subcu Lovenox CODE STATUS DNR/DNI Ange SHERIDAN,Zamzam 04/02/18 0406: Core Measures/Misc (05/19) Sepsis (View protocol) If YES complete Sepsis Event Note If YES complete Sepsis Event Note Attending MD Review Statement Attending Statement Attending MD Statement: examined this patient, discuss w/resident/PA/SILK SPOOLER, agreed w/resident/PA/SILK SPOOLER Attending Assessment/Plan: This is an 83-year-old lady admitted to the hospital for evaluation of abdominal pain and poor p.o. intake incidentally found to have acute diverticulitis on imaging. She will be treated with bowel rest, ceftriaxone and Flagyl. She is to follow-up with her lacer and tier upon discharge
[2018-04-01 21:35] VITALS: BP 148/74
[2018-04-02 06:43] VITALS: BP 120/68
--- NOTE | 2018-04-02 08:12 | PN- Housestaff ---
See Addendum Subjective Follow-up For: Acute diverticulitis Subjective: Afebrile overnight. Patient tolerated her treatment well so far and only states slight tiredness this morning. Patient has no current abdominal pain or cramping. Patient denies diarrhea, constipation, fevers, chills, chest pain, dyspnea, and dysuria. Patient otherwise denies any new concerns today. Patient lives at home with her . Patient was not able to tolerate PO medications and therefore is receiving IV antibiotics. Review of Systems Constitutional: Reports: see HPI. Objective Last 24 Hrs of Vital Signs/I&O Vital Signs Date Time Temp Pulse Resp B/P B/P Pulse O2 O2 Flow FiO2 Mean Ox Delivery Rate 04/02 1436 98.2 96 21 110/65 92 Room Air 04/02 1436 98.5 54 20 110/55 93 Room Air 04/02 1019 52 120/68 04/02 0927 52 120/68 04/02 0643 98.0 52 20 120/68 96 Room Air 04/02 0001 53 148/74 04/01 2135 96.8 53 20 148/74 98 04/01 1957 62 20 176/86 99 Room Air 04/01 1705 98.2 64 20 161/88 99 Intake & Output 04/02 1600 04/02 0800 04/02 0000 Intake Total 320 488 8461 Output Total Balance 800 175 1244 Intake, IV 330 223 1430 Intake, Oral 300 0 Patient 130 lb 140 lb Weight Physical Exam General Appearance: Alert, Oriented X3, Cooperative, No Acute Distress Skin: No Rashes, No Breakdown HEENT: Atraumatic, PERRLA Neck: Supple, No JVD Cardiovascular: Regular Rate, Normal S1, Normal S2 Lungs: Clear to Auscultation, Normal Air Movement Abdomen: Normal Bowel Sounds, Soft, mild lower quadrants abdominal tenderness Extremities: No Edema, Normal Pulses Assessment/Plan Assessment: Mrs Hallman is an 83yo F with a PMH of HTN, hyperlipidemia, dementia who presents with abdominal pain 2 days, with CT findings significant for diverticulitis, and an inability to take p.o. medications, admitted for management of diverticulitis #Diverticulitis likely diverticulitis #Asymptomatic bacteriuria #Dementia #Hypertension medications Problem List: 1. Diverticulitis Pain Ratin Pain Location: Lower abdominal Pain Goal: Pain 4 or less Pain Plan: As above Tomorrow's Labs & Rationales: Recommended routine labs
[2018-04-02 09:24] LABS: ABSOLUTE BASOPHIL COUNT 0 /CUMM (0.0-0.2); ABSOLUTE EOSINOPHIL COUNT 0 /CUMM (0.0-0.7); ABSOLUTE GRANULOCYTE CT 7.8 /CUMM (1.4-6.5); ABSOLUTE MONOCYTE COUNT 0.5 /CUMM (0.10-0.60); BASOPHIL % 0.3 % (0.0-2.0); EOSINOPHIL % 0.5 % (0-5); GRANULOCYTE % 74.8 % (42.2-75.2); HEMATOCRIT 41.5 % (37-47); MEAN CORPUSCULAR HGB CONC 33.7 G/DL (33.0-37.0); MEAN CORPUSCULAR VOLUME 89.1 FL (81.0-99.0); MEAN PLATELET VOLUME 8.1 FL (7.4-10.4); PLATELET COUNT 239 /CUMM (130-400); RBC DISTRIBUTION WIDTH 13.6 % (11.5-14.5); RED BLOOD CELL CT 4.66 /CUMM (4.20-5.40); WHITE BLOOD CELL COUNT 10.4 /CUMM (4.8-10.8)
--- NOTE | 2018-04-02 13:13 | Cons- Gastroenterology ---
General Information and HPI Consulting Request Date of Consult: 04/02/18 Requested By: Sivakumar Riddle MD Reason for Consult: 1. Abdominal pain 2. Abnormal CT scan 3. Question diverticulitis Source of Information: patient, electronic medical record Exam Limitations: dementia, poor historian History of Present Illness: Patient is an 83-year-old female with a history of dementia well known to me from prior admission. Patient was last admitted in January with a chief complaint of left lower quadrant pain. Patient had a CT scan of the abdomen and pelvis at that time which showed inflammatory changes in the sigmoid colon suggestive of acute diverticulitis, however at that time, patient did not have fever or white blood cell count and I was concerned that potentially inflammatory changes may have represented stercoral ulceration. Patient left the hospital AMA and was seen as an outpatient by Dr. Gerber Mcneill and underwent EGD and colonoscopy. She was found to have diverticulosis no evidence of colitis and a small cecal polyp. On EGD she was found to have atrophic gastritis. Patient presents now with abdominal pain and has again had a CT scan of the abdomen and pelvis which again shows inflammatory changes in the sigmoid colon as follows: There is extensive sigmoid diverticulosis. There is an area of wall thickening with mucosal enhancement and trace adjacent mesenteric fat stranding. Otherwise, unremarkable unopacified loops of small and large bowel are identified. There is no pelvic free fluid. The urinary bladder is unremarkable. There is neither pelvic nor inguinal lymphadenopathy. Although it was reported elsewhere that she has pain after eating she currently denies it. She has had no nausea or vomiting. She also reports that she feels well and has no abdominal pain. She also reports that she has had neither diarrhea nor constipation. Allergies/Medications Allergies: Coded Allergies: No Known Allergies (02/22/18) Home Med List: Amlodipine Besylate 2.5 MG TABLET 2.5 MG PO DAILY HTN (Reported) Aspirin (Aspirin*) 81 MG TAB.CHEW 81 MG PO DAILY CARDIAC (Reported) Atorvastatin Calcium 10 MG TABLET 10 MG PO DAILY HTN (Reported) Cholecalciferol (Vitamin D3) (Vitamin D3) 1,000 UNIT CAPSULE 1 CAP PO DAILY SUPPLEMENT (Reported) Donepezil HCl 5 MG TABLET 5 MG PO DAILY MEMORY LOSS (Reported) Ferrous Sulfate 325 MG (65 MG IRON) TABLET 1 TAB PO DAILY IRON, VITAMIN ( Reported) Lorazepam 0.5 MG TABLET 0.5 MG PO DAILY NEEDED ANXIETY (Reported) Metoprolol Tartrate 25 MG TABLET 0.5 TAB PO BID TACHYCARDIA Multivitamin (Multivitamins) 1 EACH CAPSULE 1 CAP PO DAILY SUPPLEMENT ( Reported) Omeprazole 40 MG CAPSULE. 1 CAP PO DAILY GI Ondansetron (Zofran Odt) 4 MG TAB.RAPDIS 4 MG SL AD NAUSEA (Reported) Current Medications: Current Medications Sig/Lily Start time Last Medication Dose Route Stop Time Status Admin Acetaminophen 1,000 MG ONCE ONE 04/02 430 DC 04/02 N/A 1 UNIT IV 04/02 444 0557 Acetaminophen 650 MG Q6PRN PRN 04/01 2100 AC PO Acetaminophen 0 .STK-MED ONE 04/01 1951 DC IV Acetaminophen 1,000 MG ONCE ONE 04/01 1930 DC 04/01 N/A 1 UNIT IV 04/01 Amlodipine Besylate 2.5 MG DAILY 04/02 900 AC 04/02 PO 0927 Aspirin 81 MG DAILY 04/02 900 AC 04/02 PO 0927 Atorvastatin Calcium 10 MG DAILY 04/02 900 AC 04/02 PO 0927 Ceftriaxone Sodium 1,000 MG DAILY 04/03 2000 AC IV Ceftriaxone Sodium 0 .STK-MED ONE 04/01 1951 DC .ROUTE Ceftriaxone Sodium 1,000 MG ONCE ONE 04/01 1930 DC 04/01 IV 04/01 Donepezil HCl 5 MG DAILY 04/01 2130 AC 04/02 PO 0927 Enoxaparin Sodium 40 MG DAILY 04/02 900 AC 04/02 SC 0934 Lorazepam 0.5 MG DAILY NEEDED 04/01 2115 AC PO 04/08 2114 Metoprolol Tartrate 12.5 MG BID 04/01 2111 AC PO Metronidazole 500 MG IQ8 04/02 2000 AC N/A 1 UNIT IV Metronidazole 500 MG ONCE ONE 04/01 1930 DC 04/01 N/A 1 UNIT IV 04/01 Ondansetron HCl 4 MG Q8P PRN 04/01 2100 DC IV Sodium Chloride 1,000 ML .[id number] 04/01 2100 AC 04/01 IV 2208 Sodium Chloride 1,000 ML BOLUS ONE 04/01 1930 DC 04/01 IV 04/01 Past History Travel History Traveled to [place] past 21 day No Medical History Blood Transfusion Hx: No Neurological: memory loss EENT: cataracts, hearing loss Cardiovascular: NONE (memory loss), hypertension, hyperlipidemia Respiratory: NONE Gastrointestinal: TWISTED INTESTINE RESOLVED Hepatic: NONE Renal: NONE Musculoskeletal: NONE Psychiatric: anxiety Endocrine: NONE Blood Disorders: NONE Cancer(s): NONE 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 Home Services at Home: None Smoking Status: Never Smoked Functional Ability ADLs Independent: dressing, eating, toileting, bathing. Ambulation: independent IADLs Independent: shopping, housework, finances, food prep, telephone, transportation , medication admin. Review of Systems Review of Systems: Unable to obtain full ROS given mild dementia Exam & Diagnostic Data Vital Signs and I&O Vital Signs Date Time Temp Pulse Resp B/P B/P Pulse O2 O2 Flow FiO2 Mean Ox Delivery Rate 04/02 1019 52 120/68 04/02 0927 52 120/68 04/02 0643 98.0 52 20 120/68 96 Room Air 04/02 0001 53 148/74 04/01 2135 96.8 53 20 148/74 98 04/01 1957 62 20 176/86 99 Room Air 04/01 1705 98.2 64 20 161/88 99 Intake & Output 04/02 1600 04/02 0400 04/01 1600 04/01 0400 03/31 1600 03/31 0400 Intake Total 600 1200 Output Total Balance 600 1200 Intake, IV 600 1200 Intake, Oral 0 Patient 130 lb 140 lb Weight Physical Exam General Appearance: well developed/nourished, no apparent distress, comfortable Head: atraumatic, normal appearance Eyes: Bilateral: normal appearance. Ears, Nose, Throat: hearing grossly normal Respiratory: chest non-tender, lungs clear Cardiovascular: regular rate/rhythm, Normal S1 and S2 without rub, murmur or gallop Gastrointestinal: normal bowel sounds, soft, non-tender, no organomegaly Extremities: no edema Neurologic/Psych: oriented to person Cranial Nerves: cranial nerves II-XII grossly intact. Skin: normal color, warm/dry Results Pertinent Lab Results: Laboratory Tests 04/02 04/01 0700 2210 Chemistry Sodium (137 - 145 mmol/L) 143 Potassium (3.5 - 5.1 mmol/L) 4.0 Chloride (98 - 107 mmol/L) 109 H Carbon Dioxide (22 - 30 mmol/L) 23 Anion Gap (5 - 16) 10 BUN (7 - 17 mg/dL) 11 Creatinine (0.5 - 1.0 mg/dL) 0.6 Estimated GFR (>60 ml/min) > 60 BUN/Creatinine Ratio (7 - 25 %) 18.3 Lactic Acid (0.7 - 2.1 mmol/L) 0.8 Hematology CBC w Diff NO MAN DIFF REQ WBC (4.8 - 10.8 /CUMM) 10.4 RBC (4.20 - 5.40 /CUMM) 4.66 Hgb (12.0 - 16.0 G/DL) 14.0 Hct (37 - 47 %) 41.5 MCV (81.0 - 99.0 FL) 89.1 MCH (27.0 - 31.0 PG) 30.0 MCHC (33.0 - 37.0 G/DL) 33.7 RDW (11.5 - 14.5 %) 13.6 Plt Count (130 - 400 /CUMM) 239 MPV (7.4 - 10.4 FL) 8.1 Gran % (42.2 - 75.2 %) 74.8 Lymphocytes % (20.5 - 51.1 %) 19.3 L Monocytes % (1.7 - 9.3 %) 5.1 Eosinophils % (0 - 5 %) 0.5 Basophils % (0.0 - 2.0 %) 0.3 Absolute Granulocytes (1.4 - 6.5 /CUMM) 7.8 H Absolute Lymphocytes (1.2 - 3.4 /CUMM) 2.0 Absolute Monocytes (0.10 - 0.60 /CUMM) 0.5 Absolute Eosinophils (0.0 - 0.7 /CUMM) 0 Absolute Basophils (0.0 - 0.2 /CUMM) 0 04/01 04/01 1734 1700 Chemistry Sodium (137 - 145 mmol/L) 142 Potassium (3.5 - 5.1 mmol/L) 4.6 Chloride (98 - 107 mmol/L) 104 Carbon Dioxide (22 - 30 mmol/L) 28 Anion Gap (5 - 16) 11 BUN (7 - 17 mg/dL) 19 H Creatinine (0.5 - 1.0 mg/dL) 0.8 Estimated GFR (>60 ml/min) > 60 BUN/Creatinine Ratio (7 - 25 %) 23.8 Glucose (65 - 99 mg/dL) 76 Lactic Acid (0.7 - 2.1 mmol/L) 0.7 Calcium (8.4 - 10.2 mg/dL) 9.9 Total Bilirubin (0.2 - 1.3 mg/dL) 0.6 AST (14 - 36 U/L) 38 H ALT (9 - 52 U/L) 45 Alkaline Phosphatase (<127 U/L) 69 Total Protein (6.3 - 8.2 g/dL) 7.0 Albumin (3.5 - 5.0 g/dL) 4.4 Globulin (1.9 - 4.2 gm/dL) 2.6 Albumin/Globulin Ratio (1.1 - 2.2 %) 1.7 Amylase (30 - 110 U/L) 105 Lipase (23 - 300 U/L) 162 Hematology CBC w Diff NO MAN DIFF REQ WBC (4.8 - 10.8 /CUMM) 9.8 RBC (4.20 - 5.40 /CUMM) 5.07 Hgb (12.0 - 16.0 G/DL) 15.4 Hct (37 - 47 %) 44.7 MCV (81.0 - 99.0 FL) 88.1 MCH (27.0 - 31.0 PG) 30.4 MCHC (33.0 - 37.0 G/DL) 34.5 RDW (11.5 - 14.5 %) 14.1 Plt Count (130 - 400 /CUMM) 292 MPV (7.4 - 10.4 FL) 7.5 Gran % (42.2 - 75.2 %) 77.5 H Lymphocytes % (20.5 - 51.1 %) 14.3 L Monocytes % (1.7 - 9.3 %) 7.3 Eosinophils % (0 - 5 %) 0.6 Basophils % (0.0 - 2.0 %) 0.3 Absolute Granulocytes (1.4 - 6.5 /CUMM) 7.6 H Absolute Lymphocytes (1.2 - 3.4 /CUMM) 1.4 Absolute Monocytes (0.10 - 0.60 /CUMM) 0.7 H Absolute Eosinophils (0.0 - 0.7 /CUMM) 0.1 Absolute Basophils (0.0 - 0.2 /CUMM) 0 Urines Urine Color (YEL,AMB,STR) STRAW Urine Clarity (CLEAR) HAZY H Urine pH (5.0 - 8.0) 6.0 Ur Specific [place] (1.001 - 1.035) <= 1.005 Urine Protein (NEG,<30 MG/DL) TRACE H Urine Ketones (NEG) NEG Urine Nitrite (NEG) POS H Urine Bilirubin (NEG) NEG Urine Urobilinogen (0.1 - 1.0 EU/dl) 0.2 Ur Leukocyte Esterase (NEG) LARGE H Ur Microscopic SEDIMENT EXAMINED Urine RBC (0 - 5 /HPF) 5-10 H Urine WBC (0 - 2 /HPF) 25-50 H Ur Epithelial Cells (NONE,FEW) RARE Urine Bacteria (NEG/NONE) RARE H Urine Mucus (FEW,NONE) RARE Urine Hemoglobin (NEG) LARGE H Urine Glucose (N MG/DL) NEG Assessment/Plan Assessment/Recommendations: ASSESSMENT: 1. Abdominal Pain -- ? mesenteric ischemia. reviewed CT with radiology no evidence of vascular calcification. 2. Abnormal CT Scan of the Abdomen -- no clear evidence of acute diverticulitis. 3. Abnormal Urinalysis -- UTI, >100,000 GNR 4. Dementia RECOMMENDATIONS: 1. Antibiotics for UTI, ceftriaxone. Await sensitivities. 2. Patient is currently comfortable and denies abdominal pain. 3. Given multiple admissions for abdominal pain and multiple CTs showing similar findings of diverticulitis without elevated white blood cell count must consider that pain is functional in origin 4. Will review CT again with radiology comparing old films and validity of diagnosis of diverticulitis. If patient is truly having recurrent diverticulitis will need to discuss with surgery possible resection of affected area. Consult Acknowledgment - Thank you for your consult request.
[2018-04-02 14:36] VITALS: BP 110/55; BP 110/65
--- NOTE | 2018-04-02 15:15 | Discharge Summary ---
See Addendum Visit Information Visit Dates Admission Date: 04/01/18 Discharge Date: 04/03/18 Hospital Course Course Attending Physician: Sivakumar Riddle MD Primary Care Physician: Ileana SHERIDAN,Elizabeth Murray Consulting Request: Consulting Specialty: Gastroenterology Consulting Physician: Dr Chilel Reason for Consult: Diverticulitis Hospital Course: Mrs Hallman is an 83yo F with a PMH of HTN, hyperlipidemia, dementia who presents with abdominal pain 2 days, with CT findings significant for diverticulitis, and an inability to take p.o. medications, admitted for management of diverticulitis #Diverticulitis likely diverticulitis #Asymptomatic bacteriuria #Dementia #Hypertension Allergies: Coded Allergies: No Known Allergies (02/22/18) Significant Procedures: CT Abd/Pelvis Pertinent Lab Results: 04/02 WBC 10.4 04/01 WBC 9.8 Disposition Summary Disposition Principal Diagnosis: Acute Uncomplicated Diverticulitis Additional Diagnosis: Asymptomatic Bacteriuria Hypertension Discharge Disposition: home or self care Discharge Instructions General Discharge Information Code Status: Do Not Resucitate/Intubat Patient's Diet: Regular deit, as tolerated Patient's Activity: As tolerated Follow-Up Instructions/Appts: Follow up with PCP within 7 days or sooner if experiencing new or worsening symptoms of fatigue, fevers, chills, abdominal pain, shortness of breath or chest pain. Medications at Discharge Discharge Medications: Continue taking these medications: Ondansetron (Zofran Odt) 4 MG TAB.RAPDIS 4 Milligram SUBLINGUAL As Directed Qty = 6 Comments: NOT GIVEN IN HOSPITA Lorazepam (Lorazepam) 0.5 MG TABLET 0.5 Milligram ORAL DAILY NEEDED Qty = 30 Comments: Last Taken: 04/02/18 Time: 9:19 PM Amlodipine Besylate (Amlodipine Besylate) 2.5 MG TABLET 2.5 Milligram ORAL DAILY Qty = 90 Comments: Last Taken: 04/03/18 Time: 11:25 AM Atorvastatin Calcium (Atorvastatin Calcium) 10 MG TABLET 10 Milligram ORAL DAILY Qty = 90 Comments: Last Taken: 04/03/18 Time: 11:25AM Donepezil HCl (Donepezil HCl) 5 MG TABLET 5 Milligram ORAL DAILY Qty = 30 Comments: Last Taken: 04/03/18 Time: 11:25 AM Aspirin (Aspirin*) 81 MG TAB.CHEW 81 Milligram ORAL DAILY Comments: Last Taken: 04/03/18 Time: 11:25 AM Multivitamin (Multivitamins) 1 EACH CAPSULE 1 Capsule ORAL DAILY Comments: NOT GIVEN IN HOSPITAL Cholecalciferol (Vitamin D3) (Vitamin D3) 1,000 UNIT CAPSULE 1 Capsule ORAL DAILY Comments: NOT GIVEN IN HOSPITAL Ferrous Sulfate (Ferrous Sulfate) 325 MG (65 MG IRON) TABLET 1 Tablet ORAL DAILY Comments: NOT GIVEN IN HOSPITAL Omeprazole (Omeprazole) 40 MG CAPSULE.DR 1 Capsule ORAL DAILY Qty = 30 Comments: NOT GIVEN IN HOSPITAL Metoprolol Tartrate (Metoprolol Tartrate) 25 MG TABLET 0.5 Tablet ORAL TWICE DAILY Qty = 15 Comments: Last Taken: 04/03/18 Time: 11:25AM Start taking the following new medications: Ciprofloxacin HCl (Cipro) 500 MG TABLET 1 Tablet ORAL TWICE DAILY Qty = 12 No Refills Comments: NOT GIVEN IN HOSPITAL Metronidazole (Flagyl) 500 MG TABLET 1 Tablet ORAL TWICE DAILY Qty = 12 No Refills Comments: Last Taken: 04/02/18 Time: 8:11 PM Copies To: Ileana SHERIDAN,Elizabeth Murray Attending Review Statement Documenting Attending: Sivakumar Riddle MD Documenting Attending: Sivakumar Riddle MD
[2018-04-02 20:00] VITALS: BP 140/80
--- NOTE | 2018-04-03 07:59 | PN- Housestaff ---
See Addendum Subjective Follow-up For: Acute Diverticulitis Subjective: Afebrile overnight. Jesus had a good night last night with no concerns of abdominal pain or cramping. Patient has had one bowel movement last night with no complaints of pain or discomfort. Patient is looking to be discharged today and would like her notified prior. Patient denies any other concerns of chest pain, dyspnea, fevers, chills, and fatigue. Review of Systems Constitutional: Reports: see HPI. Objective Last 24 Hrs of Vital Signs/I&O Vital Signs Date Time Temp Pulse Resp B/P B/P Pulse O2 O2 Flow FiO2 Mean Ox Delivery Rate 04/02 2012 58 140/80 04/02 2000 98.1 58 16 140/80 97 04/02 1436 98.2 96 21 110/65 92 Room Air 04/02 1436 98.5 54 20 110/55 93 Room Air 04/02 1019 52 120/68 Intake & Output 04/03 1600 04/03 0800 04/03 0000 Intake Total 0 100 Output Total Balance 0 100 Intake, IV 100 Intake, Oral 0 Physical Exam General Appearance: Alert, Oriented X3, Cooperative, No Acute Distress HEENT: Atraumatic Neck: Supple, No JVD Cardiovascular: Normal S1, Normal S2, No Murmurs, Tachycardia on exam Lungs: Clear to Auscultation, Normal Air Movement Abdomen: Soft, No Tenderness Extremities: No Edema, Normal Pulses Assessment/Plan Assessment: Mrs Hallman is an 83yo F with a PMH of HTN, hyperlipidemia, dementia who presents with abdominal pain 2 days, with CT findings significant for diverticulitis, and an inability to take p.o. medications, admitted for management of diverticulitis #Diverticulitis likely diverticulitis #Asymptomatic bacteriuria #Dementia #Hypertension medications Problem List: 1. Diverticulitis Pain Ratin Pain Location: No pain elicted. Pain Goal: Remain pain free Pain Plan: As above Tomorrow's Labs & Rationales: None indicated
--- NOTE | 2018-04-03 08:33 | Patient Discharge Instructions ---
Discharge Instructions General Discharge Information You were seen/treated for: Acute Uncomplicated Diverticulitis Asymptomatic Bacteriuria Hypertension You had these procedures: CT ABD/PELVIS Watch for these problems: Diarrhea, Constipation, Fatigue, Fevers, Abdominal Pain, and Blood in the stool Special Instructions: Please follow up with your primary care physician within 1 week of discharge. Please follow up with your nurse plastics within 1 week of discharge. Please take the antibiotic medication: ciprofloxacin and flagyl as prescribed for 6 days starting today. Diet Continue normal diet: Yes Recommended Diet: Regular Activity Full Activity/No Limits: No Activity Self Limited: Yes Acute Coronary Syndrome Inclusion Criteria At DC or during hospital stay patient has or had the following: ACS DIAGNOSIS No Discharge Core Measures Meds if any: Prescribed or Continued at Discharge Meds if any: NOT Prescribed or Continued at Discharge Congestive Heart Failure Inclusion Criteria At DC or during hospital stay patient has or had the following: CHF DIAGNOSIS No Discharge Core Measures Meds if any: Prescribed or Continued at Discharge Meds if any: NOT Prescribed or Continued at Discharge Cerebrovascular accident Inclusion Criteria At DC or during hospital stay patient has or had the following: CVA/TIA Diagnosis No Discharge Core Measures Meds if any: Prescribed or Continued at Discharge Meds if any: NOT Prescribed or Continued at Discharge Venous thromboembolism Inclusion Criteria VTE Diagnosis No VTE Type NONE VTE Confirmed by (Test) NONE Discharge Core Measures - Per Current guidelines, there needs to be overlap - treatment for the first 5 days of Warfarin therapy. - If discharged on Warfarin prior to 5 days of - overlap therapy, the patient will need to be - assessed for post discharge needs including - *Post discharge parental anticoagulation - *Warfarin and/or parental anticoagulation education - *Follow up date to check INR post discharge At least 5 days overlap therapy as Inpatient No Meds if any: Prescribed or Continued at Discharge Note: Overlap Therapy is Warfarin and Anticoagulant Meds if any: NOT Prescribed or Continued at Discharge
--- NOTE | 2018-04-03 11:12 | PN- Gastroenterology ---
Assessment/Plan GI Assessment/Recommendations: ASSESSMENT: 1. UTI -- E. Coli, sensitive to Cipro. Is on Cipro and Flagyl for diverticulitis. 2. Diverticulitis 3. Mild Dementia 4. Abdominal Pain I have reviewed her CT Scans of the abdomena and pelvis with radiology. She has mild diverticulitis in the sigmoid colon. To better delineate findings should she be admitted with similar pain again would recommend CT with rectal contrast. RECOMMENDATIONS: 1. Patient can be discharge on Cipro and Flagyl 2. Follow up with GI as needed as an outpatient 3. To better delineate findings of diverticulitis should she be admitted with similar pain and diagnosis of acute diverticulitis again, would recommend CT with rectal contrast. 4. GI will sign off for now. Subjective Subjective: Patient no longer having any abdominal pain. Denies dysuria or hesitancy. Objective Vital Signs and I&Os Vital Signs Date Time Temp Pulse Resp B/P B/P Pulse O2 O2 Flow FiO2 Mean Ox Delivery Rate 04/02 2012 58 140/80 04/02 2000 98.1 58 16 140/80 97 04/02 143 98.2 96 21 110/65 92 Room Air 04/02 1436 98.5 54 20 110/55 93 Room Air Intake & Output 04/03 1600 04/03 0400 04/02 1600 04/02 0400 04/01 1600 04/01 0400 Intake Total 0 100 1275 1200 Output Total Balance 0 100 1275 1200 Intake, IV 504 172 5702 Intake, Oral 0 300 0 Patient 130 lb 140 lb Weight Physical Exam General Appearance: awake, comfortable Current Medications: Current Medications Sig/Lily Start time Last Medication Dose Route Stop Time Status Admin Acetaminophen 650 MG Q6PRN PRN 04/01 2100 AC PO Amlodipine Besylate 2.5 MG DAILY 04/02 900 AC 04/02 PO 926 Aspirin 81 MG DAILY 04/02 900 AC 04/02 PO 926 Atorvastatin Calcium 10 MG DAILY 04/02 900 AC 04/02 PO 926 Ceftriaxone Sodium 1,000 MG DAILY 04/03 2000 AC IV Donepezil HCl 5 MG DAILY 04/01 2130 AC 04/02 PO 926 Enoxaparin Sodium 40 MG DAILY 04/02 900 AC 04/02 SC 0934 Lorazepam 0.5 MG DAILY NEEDED 04/01 2115 AC 04/02 PO 04/08 Metoprolol Tartrate 12.5 MG BID 04/02 2100 AC PO Metoprolol Tartrate 12.5 MG BID 04/01 2111 DC PO Metronidazole 500 MG IQ8 04/02 2000 AC 04/02 N/A 1 UNIT IV 2010 Sodium Chloride 1,000 ML .[id number] 04/01 2100 DC 04/01 IV 2208 Results Pertinent Lab Results: Laboratory Tests 04/02 04/01 0700 2210 Chemistry Sodium (137 - 145 mmol/L) 143 Potassium (3.5 - 5.1 mmol/L) 4.0 Chloride (98 - 107 mmol/L) 109 H Carbon Dioxide (22 - 30 mmol/L) 23 Anion Gap (5 - 16) 10 BUN (7 - 17 mg/dL) 11 Creatinine (0.5 - 1.0 mg/dL) 0.6 Estimated GFR (>60 ml/min) > 60 BUN/Creatinine Ratio (7 - 25 %) 18.3 Lactic Acid (0.7 - 2.1 mmol/L) 0.8 Hematology CBC w Diff NO MAN DIFF REQ WBC (4.8 - 10.8 /CUMM) 10.4 RBC (4.20 - 5.40 /CUMM) 4.66 Hgb (12.0 - 16.0 G/DL) 14.0 Hct (37 - 47 %) 41.5 MCV (81.0 - 99.0 FL) 89.1 MCH (27.0 - 31.0 PG) 30.0 MCHC (33.0 - 37.0 G/DL) 33.7 RDW (11.5 - 14.5 %) 13.6 Plt Count (130 - 400 /CUMM) 239 MPV (7.4 - 10.4 FL) 8.1 Gran % (42.2 - 75.2 %) 74.8 Lymphocytes % (20.5 - 51.1 %) 19.3 L Monocytes % (1.7 - 9.3 %) 5.1 Eosinophils % (0 - 5 %) 0.5 Basophils % (0.0 - 2.0 %) 0.3 Absolute Granulocytes (1.4 - 6.5 /CUMM) 7.8 H Absolute Lymphocytes (1.2 - 3.4 /CUMM) 2.0 Absolute Monocytes (0.10 - 0.60 /CUMM) 0.5 Absolute Eosinophils (0.0 - 0.7 /CUMM) 0 Absolute Basophils (0.0 - 0.2 /CUMM) 0 04/01 04/01 1734 1700 Chemistry Sodium (137 - 145 mmol/L) 142 Potassium (3.5 - 5.1 mmol/L) 4.6 Chloride (98 - 107 mmol/L) 104 Carbon Dioxide (22 - 30 mmol/L) 28 Anion Gap (5 - 16) 11 BUN (7 - 17 mg/dL) 19 H Creatinine (0.5 - 1.0 mg/dL) 0.8 Estimated GFR (>60 ml/min) > 60 BUN/Creatinine Ratio (7 - 25 %) 23.8 Glucose (65 - 99 mg/dL) 76 Lactic Acid (0.7 - 2.1 mmol/L) 0.7 Calcium (8.4 - 10.2 mg/dL) 9.9 Total Bilirubin (0.2 - 1.3 mg/dL) 0.6 AST (14 - 36 U/L) 38 H ALT (9 - 52 U/L) 45 Alkaline Phosphatase (<127 U/L) 69 Total Protein (6.3 - 8.2 g/dL) 7.0 Albumin (3.5 - 5.0 g/dL) 4.4 Globulin (1.9 - 4.2 gm/dL) 2.6 Albumin/Globulin Ratio (1.1 - 2.2 %) 1.7 Amylase (30 - 110 U/L) 105 Lipase (23 - 300 U/L) 162 Hematology CBC w Diff NO MAN DIFF REQ WBC (4.8 - 10.8 /CUMM) 9.8 RBC (4.20 - 5.40 /CUMM) 5.07 Hgb (12.0 - 16.0 G/DL) 15.4 Hct (37 - 47 %) 44.7 MCV (81.0 - 99.0 FL) 88.1 MCH (27.0 - 31.0 PG) 30.4 MCHC (33.0 - 37.0 G/DL) 34.5 RDW (11.5 - 14.5 %) 14.1 Plt Count (130 - 400 /CUMM) 292 MPV (7.4 - 10.4 FL) 7.5 Gran % (42.2 - 75.2 %) 77.5 H Lymphocytes % (20.5 - 51.1 %) 14.3 L Monocytes % (1.7 - 9.3 %) 7.3 Eosinophils % (0 - 5 %) 0.6 Basophils % (0.0 - 2.0 %) 0.3 Absolute Granulocytes (1.4 - 6.5 /CUMM) 7.6 H Absolute Lymphocytes (1.2 - 3.4 /CUMM) 1.4 Absolute Monocytes (0.10 - 0.60 /CUMM) 0.7 H Absolute Eosinophils (0.0 - 0.7 /CUMM) 0.1 Absolute Basophils (0.0 - 0.2 /CUMM) 0 Urines Urine Color (YEL,AMB,STR) STRAW Urine Clarity (CLEAR) HAZY H Urine pH (5.0 - 8.0) 6.0 Ur Specific [place] (1.001 - 1.035) <= 1.005 Urine Protein (NEG,<30 MG/DL) TRACE H Urine Ketones (NEG) NEG Urine Nitrite (NEG) POS H Urine Bilirubin (NEG) NEG Urine Urobilinogen (0.1 - 1.0 EU/dl) 0.2 Ur Leukocyte Esterase (NEG) LARGE H Ur Microscopic SEDIMENT EXAMINED Urine RBC (0 - 5 /HPF) 5-10 H Urine WBC (0 - 2 /HPF) 25-50 H Ur Epithelial Cells (NONE,FEW) RARE Urine Bacteria (NEG/NONE) RARE H Urine Mucus (FEW,NONE) RARE Urine Hemoglobin (NEG) LARGE H Urine Glucose (N MG/DL) NEG
[2018-04-03 11:20] VITALS: BP 134/74
[2018-04-03 11:25] VITALS: BP 134/74
[2018-04-03] MEDS ORDERED: CIPRO500 M1 PO (12:38)
[2018-04-03] MEDS ORDERED: FLAGYL500 MG PO (12:38)
== END 2018-04-03 13:30 | disposition home health service (06) | DRG 392 ==
LOC: ERH 16:12 → ERHI 20:14 → 2NA 20:14 → ENRESERV 21:18 → ENTRNSPT 21:20 → EDTRNSPT 21:28 → EDTRNSPTSTS 21:28 → 2NA 21:35 → CMPTRNSPT 21:52 → 2NA 04-02 08:31 → ENPENDDIS 04-03 12:41 → 2NA 04-03 13:30
PROVIDERS: Emergency Medicine; Internal Medicine
DX: K57.32 Diverticulitis of large intestine without perforation or abscess without bleeding (principal); I10 Essential (primary) hypertension; E78.5 Hyperlipidemia, unspecified; F03.90 Unspecified dementia, unspecified severity, without behavioral disturbance, psychotic disturbance, mood disturbance, and anxiety; F41.9 Anxiety disorder, unspecified; Z66 Do not resuscitate; R82.71 Bacteriuria; H26.9 Unspecified cataract; K59.00 Constipation, unspecified
CPT/HCPCS: 2NASP; 36592; 74177; 81001; 82436; 87086; 93005; 93010; 96374; 96375; 97116-GO; 97161-GP; J0131; J0696; J1650; J3490